=== PATIENT | female | born 1955 | race Caucasian/White ===

== ENCOUNTER 2016-05-28 14:44 | Inpatient (IN) | payer OTHER ==
[~2016-05-28] VITALS: Ht 157.5 cm; Wt 93.6 kg
[2016-05-28] VITALS (11 sets, daily range): BP systolic 134–187; BP diastolic 59–87
--- NOTE | ~2016-05-28 | PR ---
[place], [place] [facility]GR[facility] NOTE [id number] UNIT #: [id number] ROOM: [facility] DOCTOR: ELIE DILLARD MD,LORENZO BIRTHDATE: [birth year] DOS: 06/04/2016 PULMONARY CRITICAL CARE EVALUATION MANAGEMENT SUBJECTIVE: The patient remains on mechanical ventilator at this time. Plan for bronchoscopy done today. Remains on sedation with intravenous Diprivan and Versed combination intermittent use. She has been noted without any hemodynamic instability, which is acute. Low-grade fever was noted where she had rectal temperature assessment, patient up to 100 degrees Fahrenheit with normal temperature noted intermittently. OBJECTIVE: VITAL SIGNS: The patient otherwise shows respiratory rate 16-12, heart rate 60-104, blood pressure ____/51-128/62. Pulse oxygen saturation of the patient recorded as 96% saturation on 3 L nasal cannula. Intake for the patient recorded 1400 mL, output 2900 mL, ____ 1450 mL approximately. HEENT: Shows chronic obesity. The patient currently orally intubated. NECK: Supple. Head was atraumatic. CARDIOVASCULAR: S1, S2 is audible. LUNGS: The patient noted with moderate reduction of the breath sounds are noted without any wheezing or crackles. ABDOMEN: Soft and nontender. LABORATORY DATA: Culture of the endotracheal aspirate of the patient preliminary show normal kevin, final culture results were pending from yesterday. The Gram stain shows many white blood cells with few epithelial cells, no microorganisms. The heparin-induced antibody of the patient and the direct antibody for the patient platelets were noted negative. CBC this morning, WBC count 4.1, hemoglobin 9.8, hematocrit 32.3, platelet count 97,000. Arterial blood gas assist control mode on 30% oxygen, pH of 7.49, pCO2 of 32, pO2 of 78.2. CMP of patient this morning, normal BUN and creatinine. Prealbumin noted as 12. Potassium was 3.4. Sodium 146. Chest x-ray of the patient that was done this morning was reviewed. The patient shows small basilar area of atelectasis, infiltration, persistent elevation of the right hemidiaphragm. IMPRESSION: 1. Persistent acute hypercapnic hypoxic respiratory failure. 2. The patient with history of myotonic dystrophy. 3. History of congestive heart failure, systolic dysfunction. 4. Chronic obesity. 5. Elevation of the right hemidiaphragm for the patient was noted. The patient without evidence of diaphragmatic paralysis which has been assessed with the recent sniff test with fluoroscopy. 6. Acute bacterial pneumonia. 7. Basilar areas of atelectasis. 8. Moderate protein-calorie malnutrition. PLAN OF TREATMENT: Continue optimizing nutritional status. Continue mechanical ventilator for the patient with ventilator bundle management. Supportive care. [place], [place] PROGRESS NOTE [facility]: [id number] UNIT #: [id number] ROOM: [facility] DOCTOR: ELIE DILLARD MD,LORENZO BIRTHDATE: [birth year] Continuation of bronchodilators. Supportive therapy, plan of care and other medical management. Diuretic therapy will be continued as previously. With the adjustment of pacemaker she has not been noted with any further episodes of bradyarrhythmias. Proceed with the bronchoscopy as planned for this patient today. If any changes necessary in treatment, will be done based on the cultures or others after the bronchoscopy. Supportive plan of management. Total time pulmonary critical care evaluation and management 35 minutes. LORENZO DELGADILLO MD CM:PNTRANS [phone] LORENZO DILLARD MD 06/05/16 012 interface
--- NOTE | ~2016-05-28 | PR ---
[place], [place] PROGRESS NOTE NAME: TOÑO GARDNER [facility] #: [id number] UNIT #: [id number] ROOM: [facility] DOCTOR: ELIE DILLARD MD,LORENZO BIRTHDATE: [birth year] DOS: 06/10/2016 SUBJECTIVE: The patient has been noted progressive worsening of the respiratory status with hypercarbia and changes in mental status. She has been continued the BiPAP and later on was advised for intubation, she has been intubated and started back on mechanical ventilation, consultation has been ordered from the ENT specialist, Dr. Stafford, for the scheduled of tracheostomy. Low grade fever of the patient was noted. She has not been noted hemodynamic instability, NG tube feeding was continued. OBJECTIVE: VITAL SIGNS: The patient with temperature 99.8 degrees Fahrenheit, normal temperature, respiratory rate 16-12, heart rate 60-65, blood pressure 125/67-92/41. Intake for this patient is 2200 mL, output 2800 mL. The pulse oxygen saturation for the patient recorded on 35%, 97% saturation. HEENT: Examination shows head was atraumatic. Eyes nonicterus. NECK: Supple. CARDIOVASCULAR: S1, S2 audible. LUNGS: Mild to moderate decreased breath sounds bilaterally were noted. ABDOMEN: Soft, obese, nontender. LABORATORY DATA: Arterial blood gas of the patient that was done yesterday for the patient was noted with pH of 7.54, pCO2 of 39, pO2 136. BMP of the patient noted BUN 25, creatinine was normal, CO2 of 35. CBC today, hemoglobin 8.5, hematocrit 29.3, platelet count 170,000. Arterial blood gas this morning, pH of 7.44, pCO2 of 49, pO2 of 67 on 35% oxygen. IMPRESSION: 1. The patient with respiratory alkalosis, the patient was noted with recurrent acute progressive hypercapnia and hypoxic respiratory failure, currently treated with mechanical ventilation. 2. History of myotonic dystrophy for this patient as well. 3. Inability to be ventilated with noninvasive ventilation, requiring mechanical ventilation. 4. Improvement in the pneumonia of the patient and the basilar area of atelectasis of the patient has been noted progressively. 5. Protein-calorie malnutrition. The chest x-ray yesterday of the patient was noted properly positioned endotracheal tube. PLAN OF TREATMENT: Continue the bronchodilators, oxygen supplementation, ventilator bundle management. Other supportive therapy, plan of management. Usual care. All other supportive therapy, plan and management as well. Usual care. Further treatment changes will be done, the patient's progression of the illness. [place], [place] PROGRESS NOTE NAME: TOÑO GARDNER UNIT #: [id number] ROOM: [facility] DOCTOR: ELIE DILLARD MD,LORENZO BIRTHDATE: [birth year] LORENZO DELGADILLO MD CM:BOB [id number] LORENZO DILLARD MD 06/11/16 0236 interface
--- NOTE | ~2016-05-28 | PR ---
[place], [place] PROGRESS NOTE NAME: TOÑO GARDNER UNIT #: [id number] ROOM: [facility]- DOCTOR: ELIE DILLARD MD,LORENZO BIRTHDATE: [birth year] DOS: 06/11/2016 PULMONARY FOLLOWUP NOTE SUBJECTIVE: She was scheduled to have a tracheostomy done today by Dr. Stafford. The patient has been continued on small amount of sedation. She has not been noted with any hemodynamic instability for the patient, any respiratory complication and remains on assist control mode, mechanical ventilation. She was also noted afebrile. The feeding had been continued from NG tube for this patient until midnight, placed on hold because of the current surgical procedure to be done today in the OR. OBJECTIVE: VITAL SIGNS: The patient showed normal temperature, respiratory rate 12, heart rate 80, blood pressure 120/57 to 119/61. Pulse oxygen saturation of the patient recorded as 99% saturation. HEENT: Examination shows head was atraumatic. Eyes anicteric. NECK: Supple. The patient remains orally intubated. CARDIOVASCULAR SYSTEM: S1, S2 audible. LUNGS: Noted clear. ABDOMEN: Soft, nontender. Bowel sounds are present. IMPRESSION: The patient with acute respiratory failure with mild muscular dystrophy of the patient, resolving acute pneumonia, basilar area of atelectasis and acute chronic obesity as well with congestive heart failure, systolic dysfunction, compensated. PLAN OF TREATMENT: Proceed with the tracheostomy of the patient as planned. No other changes in the treatment immediately will be necessary. Feeding to be resumed for the patient after completion of uneventful tracheostomy. LORENZO DELGADILLO MD CM:PNTRANS [phone] LORENZO DILLARD MD 06/13/16 2238 interface
--- NOTE | ~2016-05-28 | PR ---
[place], [place] PROGRESS NOTE NAME: TOÑO GARDNER UNIT #: [id number] ROOM: [facility] DOCTOR: ELIE DILLARD MD,LORENZO BIRTHDATE: [birth year] DOS: 06/08/2016 PULMONARY PROGRESS NOTE SUBJECTIVE: She has been liberated for mechanical ventilator from yesterday. The patient was started immediately on the BiPAP for this patient with a setting of 20/10. This has been tolerated by the patient. The patient is agreeable tracheostomy. The patient will be reintubated. So far, the patient has been noted awake and alert, following vocal commands. She has been kept n.p.o. for the patient for possibility of suspected oropharyngeal dysphagia. The NG tube for this patient has been inserted prior to the liberation from mechanical ventilator. OBJECTIVE: VITAL SIGNS: For the patient which has been recorded showed the temperature for the patient recorded as normal. The respiratory rate of the patient recorded as 12, heart rate of 60, blood pressure 132/60-102/62. Pulse oxygen saturation of the patient recorded on the BiPAP 45% is 97-94% saturation. HEENT: Examination shows head was atraumatic. Eyes nonicterus. NECK: Supple. The patient is extubated. NG tube is in place. CARDIOVASCULAR SYSTEM: S1, S2 audible. LUNGS: Noted with moderate decreased breath sounds without any wheeze or crackles. ABDOMEN: Soft, nontender. LABORATORY DATA: BMP this morning, carbon dioxide 34, remaining electrolytes grossly normal. Arterial blood gas on the BiPAP 45% shows pH of 7.31, pCO2 of 56.7, pO2 of 83.3. CBC of this morning, hemoglobin of 9.5, hematocrit 33.9, and platelet count 164,000. IMPRESSION: 1. Resolving acute hypercapnic and hypoxic respiratory failure. 2. History of myotonic dystrophy of the patient as well. 3. Hypercarbia for the patient, which has been noted stable currently tolerating noninvasive positive pressure ventilation effectively. 4. Suspected oropharyngeal dysphagia. 5. Basilar area of atelectasis and pneumonia, which has been improving. PLAN OF TREATMENT: No changes in plan and management. Continue the patient's current therapy, plan of care as in progress. Other supportive plan of therapy, care and management. Usual treatment. [place], [place] PROGRESS NOTE NAME: TOÑO GARDNER UNIT #: [id number] ROOM: [facility] DOCTOR: ELIE DILLARD MD,LORENZO BIRTHDATE: [birth year] LORENZO DELGADILLO MD CM:PNTRANS [phone] LORENZO DILLARD MD 06/08/16 1223 interface
--- NOTE | ~2016-05-28 | PR ---
[place], [place] PROGRESS NOTE NAME: TOÑO GARDNER [facility] #: [id number] UNIT #: [id number] ROOM: [facility]- DOCTOR: ALIRIO RITTER MD BIRTHDATE: [birth year] DOS: 06/04/2016 CARDIOLOGY PROGRESS NOTE SUBJECTIVE: The patient was seen at her bedside in the Intensive Care Unit today on 06/04/2016 with her in attendance. She remains intubated and sedated on a ventilator. She appears to be breathing easily. PHYSICAL EXAMINATION: VITAL SIGNS: Her pulse is 60 and regular. The monitor shows that she is 100% AV paced, blood pressure is 138/66. Her temperature is 100 degrees. She weighs 93.6 kilograms with a body mass index of 37.7. NECK: Supple. I see no jugular distention. Carotids are full. LUNGS: Respirations are unlabored. Her chest is decreased bilaterally. HEART: Has a regular rhythm with a fourth heart sound, but no third heart sound or murmur. ABDOMEN: Obese, but otherwise benign. EXTREMITIES: Showed trace edema bilaterally. LABORATORY DATA: Chest x-ray shows minimal interstitial disease at the bases, but no vascular congestion. She has no effusions. The inspiration appears to be minimal, however. White count is 4100, hemoglobin 9.8, platelet count 97,000. Sodium 146, potassium 3.4, chloride 111, BUN 8, creatinine 0.71. IMPRESSION: 1. Acute respiratory failure due to bilateral pneumonia. 2. Myotonic dystrophy. 3. 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 4. Status post ICD placement. 5. Mild systolic congestive heart failure, which appears to be compensated at this time. Echocardiogram 05/31/2016 showed normal left ventricular size and wall thickness with ejection fraction about 50%. PLAN: We will continue to monitor the patient and manage her fluid status as needed. As noted, we did reprogram her pacing parameters 2 days ago to increase her lower rate limit from 50-60 and decrease her AV interval from over 400-300 milliseconds. Hopefully, this will improve the AV synchrony. Excess of pacing in the ventricle is not an issue since the patient's underlying rhythm is a left bundle branch block. We thank the hospitalist group for asking our advice regarding her care. [place], [place] PROGRESS NOTE NAME: TOÑO GARDNER UNIT #: [id number] ROOM: [facility] DOCTOR: ALIRIO RITTER MD BIRTHDATE: [birth year] ALIRIO RITTER MD CM:PNTRANS [phone] ALIRIO RITTER MD 06/04/16 1110 interface
--- NOTE | ~2016-05-28 | PR ---
[place], [place] PROGRESS NOTE NAME: TOÑO GARDNER UNIT #: [id number] ROOM: [facility] DOCTOR: SLICK GARCIA MD BIRTHDATE: [birth year] DOS: 06/05/2016 CARDIOLOGY FOLLOWUP NOTE REASON FOR VISIT: Hypotension and ICD. HISTORY OF PRESENT ILLNESS: The patient still on the ventilator, sedated. Hence review of systems are limited. PHYSICAL EXAMINATION: VITAL SIGNS: Blood pressure 98/50, pulse 60, respiratory rate is 12. GENERAL: The patient is on ventilator and sedated. RHYTHM STRIPS: The patient was AV pacing. HEAD AND NECK: . The patient on the vent and sedated. CHEST: Symmetrical. LUNGS: A few scattered rhonchi. HEART: Regular rhythm. No S3. Grade 1/6 systolic murmur. EXTREMITIES: Showed trace edema. NEUROLOGIC: The patient was on a ventilator and sedated. DIAGNOSTIC TESTS: Rhythm strips and labs reviewed. IMPRESSION: 1. Respiratory failure, on mechanical ventilation. 2. Mild left ventricular dysfunction. 3. Status post implantable cardioverter defibrillator. 4. Hypotension, improving. 5. History of myotonic dystrophy. RECOMMENDATIONS: 1. Her blood pressure and heart rates are relatively stable. 2. Continue current medications. 3. Once her blood pressure is stable, start low dose diuretics. 4. Dr. Sellers is planning on extubating her today. 5. Discussed with her family members who were at bedside. 6. Continue current cardiac medications. [place], [place] PROGRESS NOTE NAME: TOÑO GARDNER UNIT #: [id number] ROOM: [facility] DOCTOR: SLICK GARCIA MD BIRTHDATE: [birth year] SLICK GARCIA MD CM:PNTRANS [phone] SLICK GARCIA MD 06/05/162332 interface
--- NOTE | ~2016-05-28 | CON ---
[place], [place] REPORT OF CONSULTATION NAME: TOÑO GARDNER UNIT #: [id number] ROOM: [facility] DOCTOR: ALIRIO RITTER MD BIRTHDATE: [birth year] DOS: CARDIOLOGY CONSULTATION CHIEF COMPLAINT: Dyspnea and bradycardia. HISTORY OF PRESENT ILLNESS: The patient is a 60-year-old woman who does have a history of myotonic dystrophy. This has been complicated by hyperlipidemia and sleep apnea. The patient does have an ICD in place, which has been present for about 7 years. Presumably, the ICD was placed for conduction system disorder. She has had one ICD discharge since the device was placed. The patient presented to the hospital on this occasion with worsening dyspnea and hypoxemia. Her chest x-ray and CAT scan of the chest shows bilateral pneumonias and atelectasis. She is being treated with antibiotics and being followed by Pulmonary. Typically, the patient's ICD is followed by the saw filer at the [facility] in [place], [place]. It was noted during the current admission that she is programmed to a very slow heart rate and at times her pulse is in the 40s. The device was interrogated and I was asked to assist the pacer wrap with deciding appropriate parameters for her during the current hospitalization. According to the interrogation, the device does have a 4-year longevity. She was programmed to a lower rate limit of 50. Her AV delay was programmed at 400 milliseconds. This does not allow for normal AV synchrony even though it does encourage intrinsic ventricular activity. Nonetheless, she does have a left bundle-branch block and therefore does not have normal ventricular synchrony either. Therefore, it makes sense to me that we should improve her AV synchrony and possibly even improve her pulse to help improve her cardiac output. Currently, the patient is on BiPAP with a full face mask. She still does feel somewhat dyspneic. PAST MEDICAL HISTORY: Includes: 1. Myotonic dystrophy. 2. History of conduction system disorder, treated with placement of a dual chamber ICD around 2009. 3. History of atypical chest pain. Catheterization at the in 2011 showed no significant coronary artery disease. 4. History of aortic valve abnormality. 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 5. Chronic left bundle-branch block. 6. Hyperlipidemia. 7. Hypothyroidism. 8. Sleep apnea. [place], [place] REPORT OF CONSULTATION NAME: TOÑO GARDNER UNIT #: [id number] ROOM: [facility] DOCTOR: ALIRIO RITTER MD BIRTHDATE: [birth year] MEDICATIONS PRIOR TO ADMISSION: Aspirin 81 mg daily, cetirizine 10 mg daily, levothyroxine 112 mcg daily and propafenone 150 mg q. 8 hours. ALLERGIES: THE PATIENT LISTS ALLERGIES TO CODEINE AND SIMVASTATIN. REVIEW OF SYSTEMS: The patient denies diplopia. She does not have focal weakness. She does have myotonic dystrophy. She denies nausea or vomiting. She does have atypical chest pains. She denies fevers, chills or sweats. She does have a cough and dyspnea. She denies skin rashes. She denies heat or cold intolerance. She denies PND. She has had chronic swelling of her legs, which has not changed much lately. The remainder of the review of systems is negative except as noted above. SOCIAL HISTORY: The patient is and lives with her . She does not smoke or consume alcohol. PHYSICAL EXAMINATION: GENERAL: The patient is an overweight white female, who is awake, alert and oriented. VITAL SIGNS: Pulse is 64 and regular, blood pressure is 90/60. She is afebrile. She weighs 93.5 kg and has a body mass index of 37.7. HEENT: Normocephalic, atraumatic. Extraocular muscles are intact. Sclerae are clear. Pupils are round and react to light. The oral mucosa appears to be moist. It is difficult to see, since she is on BiPAP. NECK: Supple. She has no jugular distention or hepatojugular reflux obvious. Carotids are full without bruits. LUNGS: Respirations are unlabored at rest. She does have decreased breath sounds at the bases bilaterally. CARDIOVASCULAR: Her heart has a regular rhythm. She has a fourth heart sound. I did not hear a third heart sound. Her heart tones are distant. ABDOMEN: Obese, but otherwise benign. EXTREMITIES: Showed 1+ edema to the knees bilaterally. Peripheral pulses are palpable in the feet. I did review her electrocardiogram. She does show intermittent atrial pacing and occasional ventricular pacing. When she is not paced, she does have a left bundle-branch block. Currently, she is pacing in the atrium with normal AV conduction. IMPRESSIONS: 1. Myotonic dystrophy. 2. History of conduction system disorder, treated with dual chamber ICD around 2009. 3. Admission on this occasion with bilateral infiltrates with probable pneumonia. 4. History of atypical chest pain. Cardiac catheterization in 2011, reportedly showed no coronary artery disease. 5. Hyperlipidemia. 6. Hypothyroidism. 7. Sleep apnea syndrome. [place], [place] REPORT OF CONSULTATION NAME: TOÑO GARDNER UNIT #: [id number] ROOM: [facility] DOCTOR: ALIRIO RITTER MD BIRTHDATE: [birth year] PLAN: The pacemaker has been reprogrammed to a slightly higher rate with some rate responsiveness also added to her programming. Her ND interval was shortened from 400 milliseconds to 300 milliseconds and her lower rate limit was increased to 60. We will continue to observe her with her other physicians in the hospital and we thank the hospitalist group for asking our advice regarding her care. ALIRIO RITTER MD CM:CONSTR:REPORT OF CONSULTATION 1950 06/03/16 0610 interface
--- NOTE | ~2016-05-28 | PR ---
[place], [place] PROGRESS NOTE NAME: TOÑO GARDNER UNIT #: [id number] ROOM: [facility] DOCTOR: ELIE DILLARD MD,LORENZO BIRTHDATE: [birth year] DOS: 06/13/2016 PULMONARY PROGRESS SUBJECTIVE: She has been noted more awake and alert, responsive to vocal commands. The Diprivan has been gradually tapered off and discontinued. She has been getting p.r.n. use of the Haldol as well as a scheduled dose of Risperdal. She has been continued on mechanical ventilation, assist control mode mechanical ventilation. Tracheostomy remains in place. There was no hemodynamic instability. OBJECTIVE: VITAL SIGNS: Showed normal temperature, respiratory rate 12, heart rate 69, blood pressure 132/68. The pulse oxygen saturation of the patient recorded as 92%-90% saturation. HEENT: Examination shows head was atraumatic. Eyes nonicterus. NECK: Supple. CARDIOVASCULAR SYSTEM: S1, S2 audible. LUNGS: The patient was noted without any wheezing or crackles at the present time. ABDOMEN: Soft, nontender. EXTREMITIES: Shows chronic obesity. LABORATORY DATA: Arterial blood gas assist control mode, pH of 7.42, pCO2 of 47.5, pO2 64.7. The BMP for this patient noted normal BUN and creatinine. CO2 of 33. CBC of the patient hemoglobin 8.8, hematocrit 30.2. IMPRESSION: 1. The patient with a stable respiratory status was noted at the present time with acute hypoxic and hypercapnic respiratory failure. 2. Muscular dystrophy with myotonic dystrophy. 3. Resolved acute pneumonia basilar areas of atelectasis. 4. Stable mental status as well. PLAN OF TREATMENT: Feeding from the NG tube. Starting the patient with SI mode of mechanical ventilation for the weaning from the mechanical ventilator will be started today. She was started on CPAP of 7, pressure support of 50 with gradual reduction of the rate for this patient from 10 to lower, depends on the toleration of the current weaning. Continuation in the meantime other previous treatment, plan of management, usual care, other supportive care and plan of management. Further treatment changes will be done based on the progression of the illness. [place], [place] PROGRESS NOTE NAME: TOÑO GARDNER UNIT #: [id number] ROOM: [facility] DOCTOR: LORENZO BLAIR MD BIRTHDATE: [birth year] LORENZO DELGADILLO MD CM:PNTRANS [phone] LORENZO DILLARD MD 06/15/16 1251 interface
--- NOTE | ~2016-05-28 | PROC NOTE ---
[place], [place] PROCEDURE NOTE NAME: TOÑO GARDNER UNIT #: [id number] ROOM: [facility] DOCTOR: ELIE DILLARD MD,LORENZO BIRTHDATE: [birth year] DOS: 06/04/2016 PROCEDURE: Fiberoptic bronchoscopy. PREOPERATIVE DIAGNOSES: The patient with abnormal chest x-ray, basilar area of atelectasis, infiltration with acute respiratory failure. POSTOPERATIVE DIAGNOSES: The patient with abnormal chest x-ray, basilar area of atelectasis, infiltration with acute respiratory failure. PROCEDURE DESCRIPTION: Informed consent obtained from the patient's . The patient continued to remain on mechanical ventilator. Sedation was continued with IV Diprivan. The video fiberoptic bronchoscope advanced to endotracheal tube, lower part of trachea. The vocal cord not seen since the patient is already intubated. The tracheal lumen shows small amount of secretions suctioned out of maribel level. Maribel noted sharp. Right upper, right middle, right lower, left upper, left lingular lower lobe bronchi were all examined. The bronchial washing of the patient was taken from endobronchial tree with BAL specimens obtained from the right lower lobe endobronchial subsegment. Procedure well tolerated without any complications. Postoperative findings were discussed with the patient's after the completion of the procedure. No changes at this time in the treatment would be noted. The bronchial washings sent for all the appropriate necessary cultures. LORENZO DELGADILLO MD CM:PROCNOTE:PROCEDURE NOTE [id number] LORENZO DILLARD MD
--- NOTE | ~2016-05-28 | PR ---
[place], [place] PROGRESS NOTE NAME: TOÑO GARDNER [facility] #: [id number] UNIT #: [id number] ROOM: [place] [address] DOCTOR: ELIE DILLARD MD,LORENZO BIRTHDATE: [birth year] DOS: 05/31/2016 SUBJECTIVE: She has been noted much more awake and alert this morning using the BiPAP as previously. She has been tolerating the BiPAP effectively. Denies symptoms of chest pain or any abdominal pain. She has been noted some cough without any sputum expectoration. Denies symptoms of abdominal pain. OBJECTIVE: VITAL SIGNS: Showed normal temperature, respirations 16, heart rate 53-55, blood pressure 120/65-112/58. The pulse oxygen saturation recorded as 97% on 30% oxygen on the BiPAP with nasal cannula was 94% saturation recorded this morning. HEENT: Shows moderate obesity. NECK: Supple and obese. CARDIOVASCULAR SYSTEM: S1, S2 audible. LUNGS: Shows she has decreased breaths noted in the right lower lung. Scattered wheezing and crackles at the lower portion of the lungs as well. ABDOMEN: Soft, obese and nontender. EXTREMITIES: Shows chronic obesity. LABORATORY DATA: The patient's arterial blood gas this morning, pH is 7.60, pCO2 of 10.4, hematocrit 36.5, platelet count was normal. BMP this morning was noted normal BUN and creatinine. Sodium 146. Remaining electrolytes were normal. Arterial blood gas that was obtained for the patient nasal cannula 2 liters this morning, pH is 7.29, pCO2 of 59.7, pO2 59.5. IMPRESSION: 1. The patient with acute hypercapnic and hypoxic respiratory failure. 2. Chronic obesity. 3. Obstructive sleep apnea disorder history in the past with noncompliance and other treatment. 4. History of myotonic muscular dystrophy. 5. Chronic obesity as well. 6. Basilar area of atelectasis, possibly superimposed pneumonia, which has been treated. 7. Rule out diaphragmatic paralysis. PLAN OF TREATMENT: Use of the BiPAP the patient as previously will be continued with antibiotics, bronchodilators, and oxygen supplementation. Sniff test for the patient that has been ordered was pending. Continue current antibiotics. No change in this treatment needs to be done. Other supportive plan of management, therapy, plan of care. Usual treatments. [place], [place] PROGRESS NOTE NAME: TOÑO GARDNER UNIT #: [id number] ROOM: [place] [address] DOCTOR: LORENZO BLAIR MD BIRTHDATE: [birth year] LORENZO DELGADILLO MD CM:PNTRANS [phone] LORENZO DILLARD MD 05/31/16 1345 interface
--- NOTE | ~2016-05-28 | PR ---
[place], [place] PROGRESS NOTE NAME: TOÑO GARDNER [facility] #: [id number] UNIT #: [id number] ROOM: [facility] DOCTOR: ELIE DILLARD MD,LORENZO BIRTHDATE: [birth year] DOS: 06/05/2016 PULMONARY-CRITICAL CARE EVALUATION AND MANAGEMENT NOTE SUBJECTIVE: The patient remains on mechanical ventilator, sedated with IV Diprivan previously. The Diprivan has been discontinued about half an hour ago, resulting in gradual improvement in mental status, but she did not note it was optimal mental status improvement. She has not been noted any hemodynamic instability. Bronchoscopy was completed yesterday. Low-grade fever was noted yesterday. OBJECTIVE: VITAL SIGNS: For the patient shows temperature 99.6 degree Fahrenheit, respiratory rate of 14 to 27, heart rate 72 to 60. The blood pressure noted 90/42 to 126/56. Intake 2000 mL, output 950 mL. Pulse oxygen saturation on 30% oxygen recorded 90% saturation. HEENT: Examination shows head was atraumatic. Eyes nonicterus. The patient orally intubated. NECK: Supple. CARDIOVASCULAR: S1, S2 audible. LUNGS: Shows basilar crackles. No wheezing. ABDOMEN: Soft, nontender. LABORATORY DATA AND DIAGNOSTIC STUDIES: BMP this morning; glucose 117, BUN and creatinine were normal. Potassium 3.4. Arterial blood gas this morning on assist control mode; pH of 7.45, pCO2 of 34, pO2 of 77.7 on 30% oxygen. Culture of the endotracheal aspirate noted as normal kevin. Culture of the bronchial washing preliminary showing normal kevin. The patient's final culture results were pending. Gram stain of yesterday of the bronchial washing shows few white blood cells, few epithelial cells, rare gram-negative diplococci. Chest x-ray was done this morning shows persistent elevation of right hemidiaphragm with area of infiltration in the lower lungs. IMPRESSION: The patient who has been currently noted with; 1. Acute hypercapnic and hypoxic respiratory failure. 2. History of myotonic dystrophy. 3. Basilar area of atelectasis, infiltration, and acute bacterial pneumonia. 4. History of past cardiac dysrhythmia of the patient, currently has a pacemaker in place, which has been working effectively. 5. History of superimposed congestive heart failure with some systolic dysfunction, which appeared to be compensated at the present time. 6. The patient with pancytopenia, at this time, medication-induced, other etiologies. PLAN OF TREATMENT: Keep the patient off sedation, start the patient on CPAP of 5 with pressure support of 10 as well, that will be continued for 2 hours if tolerated for this patient. The patient will be considered possibility of liberation of mechanical ventilation depending on further progression. Other previous treatment, plan and management to be continued as well. Usual care. [place], [place] PROGRESS NOTE NAME: TOÑO GARDNER UNIT #: [id number] ROOM: [facility] DOCTOR: ELIE DILLARD MD,LORENZO BIRTHDATE: [birth year] All other supportive plan of therapy and plan of management. Further treatment changes will be done based on the progression of the illness. Continuation of the DVT prophylaxis. Continue nutrition support from the NG tube for the patient for the [id number] protein calorie malnutrition. Other supportive plan and management as well. Usual care. Total time for pulmonary critical care evaluation and management was 35 minutes. LORENZO DELGADILLO MD CM:PNTRANS [phone] LORENZO DILLARD MD 06/10/16 5364 interface
--- NOTE | ~2016-05-28 | PR ---
[place], [place] PROGRESS NOTE NAME: TOÑO GARDNER UNIT #: [id number] ROOM: [facility] DOCTOR: LORENZO BLAIR MD BIRTHDATE: [birth year] DOS: 06/14/2016 PULMONARY PROGRESS NOTE SUBJECTIVE: She has been comfortably resting at this time on the bed. She has been noted comfortable from the mental status as well. The SI mode of mechanical ventilation continued with pressure support of 15 and rate of 10 at the present time. At this time, the patient was breathing at a rate of 12 breaths per minute. Tidal volume noted about 400 mL on the mechanical ventilator. OBJECTIVE: VITAL SIGNS: Showed normal temperature to 99.4 degrees Fahrenheit, respiratory rate of 14, heart rate 70, blood pressure 105/63. Intake for the patient 2100 mL, the output 950 mL. Pulse oxygen saturation for the patient on the mechanical ventilator at 30% oxygen 96% saturation. HEENT: Examination shows tracheostomy remains in place. NECK: Supple. CARDIOVASCULAR SYSTEM: S1, S2 audible. LUNGS: Noted without any wheezing or crackles. ABDOMEN: Soft, nontender. LABORATORY DATA: CBC: WBC count 4.3, hemoglobin 8.6, hematocrit 30.3, platelet count was normal. BMP of the patient this morning was noted normal BUN and creatinine. CO2 35. The labs on the patient also arterial blood gas, pH of 7.35, pCO2 of 58, pO2 of 86 on SI mode of mechanical ventilation. IMPRESSION: 1. The patient has stable respiratory patient with acute hypercapnia and hypoxia. 2. Permanent tracheostomy, currently weaning noted in progress. 3. Severe obesity. 4. History of myotonic muscular dystrophy. PLAN OF TREATMENT: No changes in the plan of management, mild leukopenia of the patient noted most likely medication induced, will be monitored. Other supportive therapy, plan of management, other care. Usual treatment. Continue weaning from mechanical ventilator. [place], [place] PROGRESS NOTE NAME: TOÑO GARDNER UNIT #: [id number] ROOM: [facility] DOCTOR: LORENZO BLAIR MD BIRTHDATE: [birth year] LORENZO DELGADILLO MD CM:PNTRANS [phone] LORENZO DILLARD MD 06/15/16136 interface
--- NOTE | ~2016-05-28 | CON ---
[place], [place] REPORT OF CONSULTATION NAME: TOÑO GARDNER UNIT #: [id number] ROOM: [facility] DOCTOR: LUKE MCKAYDWAINE BIRTHDATE: [birth year] DOS: 06/10/2016 ATTENDING: Dr. Thomas Menezes. REASON FOR CONSULTATION: Respiratory failure, evaluate for tracheostomy. HISTORY OF PRESENT ILLNESS: The patient is a 60-year-old white female with a history of progressive muscular dystrophy who has been hospitalized at [facility] over the past 2 weeks with respiratory failure. She has remained intubated and has failed attempts of extubation. Dr. Sellers has requested evaluation for tracheostomy because of failure to wean. The patient has significant chronic weakness and was having decreased ability to ambulate. PAST MEDICAL HISTORY: Muscular dystrophy, myotonic dystrophy, obesity, sleep apnea, hypothyroidism, history of OK, hyperlipidemia, depression, coronary artery disease and AFib. PAST SURGICAL HISTORY: Includes AICD placement, , history of cardiac catheterization, cataract surgery, and cholecystectomy. CURRENT MEDICATIONS: Include Lasix, Rocephin, Zithromax, Protonix, peridex, aspirin, levothyroxine, Lovenox, Zyrtec, DuoNeb, and Zofran. ALLERGIES: CODEINE, SIMVASTATIN. FAMILY HISTORY: Paternal history of lymphoma, maternal history of stroke. Examination, the patient was examined at the bedside. She is in the ICU. She is on a ventilator and has nasogastric tube in place. PHYSICAL EXAMINATION: VITAL SIGNS: Blood pressure 123/65, pulse ox 97. NECK: The examination of the neck shows no palpable adenopathy. GENERAL: The patient is obese. She has an endotracheal tube in place, in good position. Trachea is midline. The complete examination is compromised by the patient's endotracheal intubation. HEENT: Ears are clear. Nose shows no mucopurulence. HEART: Regular rate and rhythm. LUNGS: Showed diminished breath sounds bilaterally. IMPRESSION: 1. Respiratory failure. 2. Muscular dystrophy. 3. Failure to wean from ventilator. PLAN: We will proceed with tracheostomy. The patient is tentatively scheduled for tracheostomy on 06/11/2016 at 10:00 a.m. [place], [place] REPORT OF CONSULTATION NAME: TOÑO GARDNER UNIT #: [id number] ROOM: [facility] DOCTOR: DWAINE BUTLER MD BIRTHDATE: [birth year] DWAINE BUTLER MD CM:CONSTR:REPORT OF CONSULTATION 0828 06/10/16 0905 interface
--- NOTE | ~2016-05-28 | PR ---
[place], [place] PROGRESS NOTE NAME: TOÑO GARDNER UNIT #: [id number] ROOM: [place] [address] DOCTOR: ELIE DILLARD MD,LORENZO BIRTHDATE: [birth year] DOS: 06/01/2016 SUBJECTIVE: She has been noted comfortable at this time, more awake and alert this morning. Denies symptoms of chest pain or any abdominal pain. The SNIFF test was completed for patient yesterday that was noted normal. OBJECTIVE: VITAL SIGNS: The patient shows a normal temperature, respiratory rate 14, heart rate 54, and blood pressure 130/68-133/70. Her pulse oxygen saturation 30% oxygen 98% saturation. HEENT: Shows no new change. NECK: Supple. CARDIOVASCULAR SYSTEM: S1, S2 audible. LUNGS: For the patient was noted without any wheezing or crackles at the present time. ABDOMEN: Soft and nontender. LABORATORY DATA: There were no new labs done today except the arterial blood gas this morning was done on 30% oxygen supplementation with the BiPAP, pH of 7.32, pCO2 of 54.7, pO2 89.8. IMPRESSION: 1. Basilar area of atelectasis, acute infiltration with acute hypoxic and hypercapnic respiratory failure, resolving. There was no evidence of right diaphragmatic paralysis for the patient noted with elevation of right hemidiaphragm. The patient has been noted. 2. History of myotonic muscular dystrophy. PLAN OF TREATMENT: Continue the patient's current plan of management without any changes. Usual care. Supportive therapy, plan of care. Usual treatment. Continue the BiPAP. The patient has been noted poor peripheral venous access and will be recommended about PICC line insertion. LORENZO DELGADILLO MD CM:PNTRANS [phone] LORENZO DILLARD MD 06/01/16 1423 interface
--- NOTE | ~2016-05-28 | PR ---
[place], [place] PROGRESS NOTE [id number] UN[facility] #: [id number] ROOM: [facility] DOCTOR: ELIE DILLARD MD,LORENZO BIRTHDATE: [birth year] DOS: 06/03/2016 PULMONARY CRITICAL CARE EVALUATION AND MANAGEMENT SUBJECTIVE: She has been noted with progressive change in mental status with agitation, has been given Ativan for the patient's other medical management, resulting in further deterioration of the hypercarbia and respiratory failure progression. She has been continued on the BiPAP for the patient last night, but it was noted ineffective later on. She has been intubated and started on mechanical ventilation successfully by the anesthesia staff. The patient has been currently intubated and remains on mechanical ventilation, has not been noted with any hemodynamic instability. The sinus tachycardia for the patient that has been noted at times was decreased. The pacemaker for the patient was readjusted for the patient because of increased delivery which has been noted setup in the programing was fixed. Heart rate was noted greater than 60 for this patient after the baseline heart rate changed from 50-60 yesterday. This morning, the patient has been sedated on mechanical ventilation and intubated orally. Orogastric tube is in place. OBJECTIVE: VITAL SIGNS: Showed normal temperature, respiratory rate 12, heart rate of 60-109, blood pressure 120/80-130/54. Intake 3. liters, the output 1100 mL. Positive fluid balance of 2 liters. Pulse oxygen saturation on 50% oxygen 100% saturation recorded. HEENT: Examination shows head was atraumatic. The patient orally intubated. NECK: Supple. Orogastric tube is in place. CARDIOVASCULAR: S1, S2 is audible. LUNGS: For the patient was noted without any wheezing or crackles at the present time. Breaths are noted mildly decreased bilaterally. ABDOMEN: Soft, nontender. LABORATORY DATA: Arterial blood gas, pH of 7.43, pCO2 35, pO2 140 post-intubation and mechanical ventilation. CMP of the patient on 06/03, glucose 152, BUN and creatinine was normal. Total protein 5.5, albumin 2.9. CBC this morning, WBC count 5.2, hemoglobin 10.5, hematocrit 36.8, platelet count was normal. Arterial blood gas of the patient on 35% oxygen, pH of 7.21, pCO2 62, and pO2 62 as well. Another arterial blood gas for the patient done earlier on BiPAP, pH of 7.24, pCO2 of 60, pO2 75.5. TSH level noted normal that was ordered yesterday. Chest x-ray of the patient that was done this morning for the patient post-intubation was reviewed, left lower lobe infiltration or atelectasis for the patient noted more pronounced. The right lower lobe aeration noted improved, small bilateral pleural fluid was also suspected, AICD noted in place, endotracheal tube tip was noted 4 cm above the vivian level. NG tube was noted in appropriate position in the stomach. IMPRESSION: 1. The patient who has been currently noted with acute progressive hypoxic and hypercapnic respiratory failure with possibility of fluid overload, congestive heart failure superimposed with acute bacterial pneumonia and atelectasis was considered. [place], [place] PROGRESS NOTE NAME: TOÑO GARDNER UNIT #: [id number] ROOM: [facility] DOCTOR: ELIE DILLARD MD,LORENZO BIRTHDATE: [birth year] 2. History of myotonic dystrophy. 3. Chronic obesity as well. 4. Resolution of bradycardia after adjustment to the baseline pacemaker. 5. Chronic obesity as well. 6. Possible protein-calorie malnutrition as well. PLAN OF TREATMENT: The patient will be started on the NG tube feeding. Prealbumin level was ordered to assess the nutritional status. Ventilator bundle management has been initiated for the patient post-intubation. Sedation will be continued with the IV Diprivan. All other supportive plan of therapy and care management. Usual care. Thanks for allowing me to participate in the care of this patient. ADDENDUM Total time of pulmonary critical care management for the patient today is 40 minutes. LORENZO DELGADILLO MD CM:PNTRANS [phone] LORENZO DILLARD MD 06/04/16 1548 interface
--- NOTE | ~2016-05-28 | PR ---
[place], [place] PROGRESS NOTE NAME: TOÑO GARDNER UNIT #: [id number] ROOM: [facility] DOCTOR: ELIE DILLARD MD,LORENZO BIRTHDATE: [birth year] DOS: 06/12/2016 PULMONARY PROGRESS NOTE SUBJECTIVE: The patient has been heavily sedated at this time with Diprivan. The Diprivan dose has been decreased this morning. She has been noted without any complications after tracheostomy for the patient that was completed without difficulty yesterday. OBJECTIVE: VITAL SIGNS: For the patient, which have been recorded showed the temperature noted normal, respiratory rate 12 , blood pressure 92/58. Pulse oxygen saturation of the patient was recorded on mechanical ventilator 96% saturation. HEENT: Examination shows head was atraumatic. Eyes nonicterus. NECK: Tracheostomy in place. CARDIOVASCULAR SYSTEM: S1, S2 audible. LUNGS: Without any wheezing or crackles. ABDOMEN: Soft, nontender. LABORATORY DATA: CBC today, WBC count 3.6, hemoglobin 8.6, hematocrit 29.3, platelet count was normal. The BMP of patient this morning was noted as normal. Chest x-ray yesterday post-tracheostomy noted tracheostomy in place for the patient without any other acute changes. IMPRESSION: 1. Resolution of the pneumonia, resolving at basilar area of atelectasis. 2. Acute hypercapnic hypoxic respiratory failure with current tracheostomy. PLAN OF TREATMENT: The sedation for the patient in the form of the Diprivan will be gradually reduced and discontinued. The patient will be started on Haldol for the patient for any agitation. The Risperdal was also added the lower dose for this patient 0.25 mg b.i.d., the dose will be increased to keep the patient for more comfort. Once sedation will be turned off for this patient and noted with adequate mental status of the patient and comfort level for the patient achieved, the weaning will be started for this patient. In the meantime, continue other previous treatment therapy, plan of management, usual care and plan of therapies. Usual care. [place], [place] PROGRESS NOTE NAME: TOÑO GARDNER UNIT #: [id number] ROOM: [facility] DOCTOR: LORENZO BLAIR MD BIRTHDATE: [birth year] LORENZO DELGADILLO MD CM:PNTRANS 11 LORENZO DILLARD MD 06/12/161911 interface
--- NOTE | ~2016-05-28 | PR ---
[place], [place] PROGRESS NOTE NAME: TOÑO GARDNER UNIT #: [id number] ROOM: [facility] DOCTOR: SLICK GARCIA MD BIRTHDATE: [birth year] DOS: 06/06/2016 CARDIOLOGY FOLLOWUP VISIT NOTE REASON FOR VISIT: Cardiomyopathy and ICD. HISTORY OF PRESENT ILLNESS: The patient still on the ventilator, but somewhat alert, no acute distress. REVIEW OF SYSTEMS: Limited due to her status. The patient was on ventilator and sedated. RHYTHM STRIPS: The patient was in sinus rhythm with ventricular pacing. PHYSICAL EXAMINATION: VITAL SIGNS: Blood pressure 111/87, pulse 60, respiratory rate is 12. GENERAL: The patient is alert, on the ventilator. HEAD AND NECK: The patient on the vent. No distant neck veins. No carotid bruit. LUNGS: Showed few scattered rhonchi. HEART: Regular rhythm, no S3, grade 1/6 systolic murmur. ABDOMEN: Bowel sounds normal. EXTREMITIES: Showed 1+ edema. Distal pulses are palpable. SKIN: Warm and dry. NEUROLOGIC: The patient was on ventilator and sedated. IMPRESSION: 1. Mild left ventricular dysfunction, ejection fraction, acute heart failure. 2. Hypotension, mostly resolved. 3. Respiratory failure on mechanical ventilation. 4. Status post implantable cardioverter-defibrillator, normal function. ICD was reprogrammed. 5. Myotonic dystrophy. RECOMMENDATIONS: 1. Continue current medications. 2. Once her blood pressure is stable, she is off the ventilator. Use her diuretics as needed. 3. There is no family at bedside. 4. Continue her current medical therapy. [place], [place] PROGRESS NOTE NAME: TOÑO GRADNER UNIT #: [id number] ROOM: [facility] DOCTOR: SLICK GARCIA MD BIRTHDATE: [birth year] SLICK GARCIA MD CM:PNTRANS [phone] SLICK GARCIA MD 06/06/162352 interface
--- NOTE | ~2016-05-28 | PR ---
[place], [place] PROGRESS NOTE NAME: TOÑO GARDNER UNIT #: [id number] ROOM: [facility] DOCTOR: LORENZO BLAIR MD BIRTHDATE: [birth year] DOS: 06/15/2016 PULMONARY PROGRESS NOTE SUBJECTIVE: She remains on mechanical ventilator, noted fully awake and alert, requires Haldol occasionally. She was continued on the Risperdal. She does follow vocal commands. She was continued on SI mode of mechanical ventilation for the weaning. respiratory rate has been decreased to 6 this morning. OBJECTIVE: VITAL SIGNS: Shows a normal temperature, respiratory rate 12, heart rate of 76, blood pressure 94/41-110/86. A pulse oxygen saturation 30% oxygen 94% saturation recorded. HEENT: Tracheostomy remains in place. NECK: Supple. CARDIOVASCULAR SYSTEM: S1, S2 is audible. LUNGS: Noted without any wheezing or crackles. ABDOMEN: Soft, nontender. LABORATORY DATA: CBC of the patient this morning noted mild anemia, hemoglobin 9, hematocrit 31.9, WBC count and platelet count were normal. CMP of the patient, BUN 26, creatinine was normal. CO2 of 34. IMPRESSION: 1. Stable respiratory status for the patient with the acute hypercapnic, hypoxic respiratory failure, ventilator dependency with the history of myotonic muscular dystrophy. 2. Resolved acute pneumonia, basilar area of atelectasis. 3. Hypercapnia as well. 4. Chronic obesity. PLAN OF TREATMENT: Continue the weaning of patient as in progress for the patient at this time. No other change in the treatment at this time otherwise will be necessary. Other supportive therapy, plan of management and care. Usual medical management. [place], [place] PROGRESS NOTE NAME: TOÑO GARDNER UNIT #: [id number] ROOM: [facility] DOCTOR: LORENZO BLAIR MD BIRTHDATE: [birth year] LORENZO DELGADILLO MD CM:PNTRANS [phone] LORENZO DILLARD MD 06/15/16 2334 interface
--- NOTE | ~2016-05-28 | CON ---
[place], [place] REPORT OF CONSULTATION NAME: [facility]ARDNER [id number] UNIT #: [id number] ROOM: [place] [address] DOCTOR: LORENZO BLAIR MD BIRTHDATE: [birth year] DOS: 05/29/2016 PULMONARY CONSULTATION EVALUATION AND MANAGEMENT The consultation was requested by the hospitalist services. HISTORY OF PRESENT ILLNESS: A 60-year-old white female who has been sent from [facility] because of the hypoxia to the hospital yesterday for further assessment. The patient has been noted to have progressive muscular dystrophy. She has been admitted to the hospital and saturation of the patient was reported as 86% for this patient by the EMS as well. The patient reported symptoms of coughing, which has been present for the past 3 days as well as a decrease in her appetite as well. She denies symptoms of wheezing. Denies symptoms of chest pain or hemoptysis. REVIEW OF SYSTEMS: CONSTITUTIONAL: She reports symptoms of fatigue and tiredness. Denies symptoms of fever or chills. EYES: Denies any burning, redness, or tenderness. EARS, NOSE, THROAT SYMPTOMS: No sore throat, hoarseness, otalgia, or postnasal drainage. CARDIOVASCULAR: Denies anginal pain. Denies any palpitations. The patient reported symptoms of intermittent edema of the lower extremities. GASTROINTESTINAL: Denies dysphagia, nausea, vomiting, diarrhea, abdominal pain, hematemesis, melena, or hematochezia. Denies symptoms of dysphagia. GENITOURINARY: Denies dysuria, suprapubic pain, or hematuria. MUSCULOSKELETAL: History of muscular dystrophy of the patient, type exactly was unknown. 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 CENTRAL NERVOUS SYSTEM: Generalized weakness and fatigue was noted for this patient with history of muscular dystrophy without any focal deficit. SKIN: Denies any lesions or rashes. MUSCULOSKELETAL: Denied any acute joint pain. The remaining systems were reviewed with the patient, they were all noted negative. PAST MEDICAL HISTORY: 1. Coronary artery disease. 2. Atrial fibrillation. 3. History of muscular dystrophy and myotonic dystrophy. 4. History of chronic obesity. 5. Obstructive sleep apnea disorder. 6. Hyperlipidemia. 7. History of depression. PAST SURGICAL HISTORY: 1. Cardiac catheterization in the past. 2. AICD insertion. 3. . 4. Cataract extraction. [place], [place] REPORT OF CONSULTATION NAME: TOÑO GARDNER UNIT #: [id number] ROOM: [place] [address] DOCTOR: LORENZO BLAIR MD BIRTHDATE: [birth year] 5. Cholecystectomy. SOCIAL HISTORY: The patient reported , has 2 children, nonsmoker lifetime. Denies history of alcohol use or any illicit drug use. FAMILY HISTORY: The patient's father has been known with history of lymphoma. Mother at the age of 60-year-old from complication related to the CVA. Family history of coronary artery disease, cancer, diabetes, and hypertension was also reported. HOME MEDICATIONS: Noted use of aspirin, Zyrtec, Synthroid and Rythmol. DRUG ALLERGIES: Noted allergies to the codeine and simvastatin. PHYSICAL EXAMINATION: GENERAL: This is 60-year-old female who has been currently sitting comfortably on her bed without any distress. VITAL SIGNS: The patient's height was recorded by the nursing staff for this patient at the time of admission with height of 5 feet 2 inches, weight of 206 pounds, BMI 37.5. The vital signs show temperature normal, respiratory rate of 18, heart rate 67-58, blood pressure 181/72-146/85. The pulse oxygen saturation of the patient recorded on 4 liters nasal cannula was 93% saturation, previously on room air was 86% saturation at rest. HEENT: Moderate obesity. Partial ptosis of the eyes was noted bilaterally. NECK: Supple. CARDIOVASCULAR: S1, S2 is audible. LUNGS: The patient was noted with [id number] decreased breath sounds noted in the lungs bilaterally. There were no crackles or wheezing. ABDOMEN: Soft, obese. EXTREMITIES: Show no edema, clubbing or cyanosis. CENTRAL NERVOUS SYSTEM: Generalized muscular weakness noted, remaining examination could not be completed. SKIN: Showed no lesions or rashes. MUSCULOSKELETAL: Does not show any deformities. LABORATORY DATA: CBC on 05/28/2016 admission: WBC count 4.1, hemoglobin 13, hematocrit 45.3, platelet count was normal. Arterial blood gas in the Emergency Room; pH of 7.28, pCO2 of 68, pO2 of 63.9. CMP of the patient on 05/28/2016 for the patient noted normal BUN and creatinine, sodium 150, carbon dioxide 35, alkaline phosphatase minimally elevated at 131. ProBNP ____liver function test otherwise. CK-MB, troponin for the patient to reassess the patient yesterday and this morning noted normal. PT/PTT this morning normal. CMP this morning, glucose 169, BUN and creatinine remains normal. The magnesium was normal. The chest x-ray that was done for the patient, reviewed for patient, 05/28/2016 shows mild pulmonary venous congestion was noted without any acute clots, pulmonary infiltration. The patient had a CT scan of the chest, which was done for this patient on this admission as well was personally reviewed. CT scan of the chest, which was done without contrast shows basilar areas of atelectasis, possibility of compression atelectasis, pneumonia cannot be completely excluded. Right diaphragm was elevated. Several chest x-ray of the patient, which has [place], [place] REPORT OF CONSULTATION NAME: TOÑO GARDNER UNIT #: [id number] ROOM: [place] [address] DOCTOR: LORENZO BLAIR MD BIRTHDATE: [birth year] done for this patient was reviewed for this patient. The chest x-ray as far as of 04/15/2009 for this patient shows mild elevation of the right hemidiaphragm at that time. Chest x-ray of the patient that was done in 2012 shows elevation of the right hemidiaphragm. Chest x-ray ____ shows elevation of the right hemidiaphragm for this patient. The AICD and pacemaker was noted in place for this patient, first time noted in the chest x-ray 2012. IMPRESSION: 1. The patient who has been currently admitted to the hospital and noted with acute hypoxic respiratory failure with possibly chronic hypercapnic respiratory failure and hypoventilation secondary to muscle dystrophy. The current symptoms of cough for the patient was suggestive of possibility of acute pneumonia to be considered in the differential diagnosis in addition to the area of atelectasis. 2. Rule out right diaphragmatic paralysis. Most likely a chronic finding, but needs confirmation. 3. History of congestive heart failure, history of coronary artery disease, cardiac dysrhythmia, automatic implantable cardioverter-defibrillator in place, chronic obesity and other problems as well including hypothyroidism. PLAN OF TREATMENT: The patient will be ordered the BiPAP for this patient to help improve the current hypoventilatory syndrome. She could use her CPAP or BiPAP from home, which has been previously used, the patient with history of obstructive sleep apnea disorder as well if necessary. The sniff test for this patient will be ordered to rule out the diaphragmatic paralysis for this patient for confirmation reason. Continuation of other previous treatment, plan of management, plan of care. Sputum for Gram stain culture, if reduced by the patient with expectoration could be sent for cultures. The bronchodilator will be given every 4 hours to help mobilize secretions. The patient has been started on Solu-Medrol 60 mg q.8 hours, the reason of that unknown. The steroids will be decreased for the patient, possibly discontinue it. Other supportive therapy, plan and management as well. Usual care. Other supportive plan of management and therapies. Thanks for allowing me to participate in the care of this patient. LORENZO DELGADILLO MD CM:CONSTR:REPORT OF CONSULTATION 1329 05/31/16 0216 interface
--- NOTE | ~2016-05-28 | PR ---
[place], [place] PROGRESS NOTE NAME: [id number] UNIT #: [id number] ROOM: [facility] DOCTOR: ELIE DILLARD MD,LORENZO BIRTHDATE: [birth year] DOS: 06/07/2016 SUBJECTIVE: The patient remains on mechanical ventilator, awake and alert. She has not been given any sedative. The patient has been continuing CPAP mode of mechanical ventilation several hours, with the patient's CPAP 5, pressure support of 15. Arterial blood gases CPAP of 5, pressure support of 10, was noted significant hypercarbia and decreased pH. This morning as the patient noticed, she was noted assist control mode on mechanical ventilation. She has not been noted any acute hemodynamic instability. Continue other previous treatment as ordered including ventilator bundle management and nutrition support from the orogastric tube. PHYSICAL EXAMINATION: VITAL SIGNS: Shows normal temperature, respiratory rate 17, heart rate of 60, blood pressure 123/66. Intake 2000, the output was 1250 mL. The pulse oxygen saturation on 30% oxygen 94% saturation recorded. HEENT: Examination shows head was atraumatic. Eyes nonicterus. The patient is currently intubated orally. Gastric tube is in place. CARDIOVASCULAR: S1, S2 is audible. LUNGS: The patient noted with moderate reduction in the breath sounds bilaterally. There were no crackles, rhonchi or wheezing noted at the present time. The lungs were noted essentially clear. ABDOMEN: Soft. Moderate obesity. EXTREMITIES: Shows chronic obesity without any edema. LABORATORY DATA: 1:34 Arterial blood gases: Assist control mode mechanical ventilation, pH of 7.48, pCO2 35, pO2 80.9. The BMP for this patient this morning, BUN and creatinine were normal, glucose 114, sodium 147, phosphorus 2.1, magnesium 2.3. CBC this morning, hemoglobin 8.7, hematocrit 30.1, platelet count was noted completely normal, today 132,000 with normal WBC count. Direct platelet antibodies were noted negative as well. IMPRESSION: 1. The patient with resolving acute hypercapnic and hypoxic respiratory failure. 2. The patient with history of myotonic dystrophy patient as well by history. 3. Significant carbon dioxide retention because of the muscular weakness. 4. Chronic obesity. 5. Resolving acute pneumonia and atelectasis, clinically and radiologically. 6. Mild hypernatremia secondary to diuretics as well. 6. Moderate protein-calorie malnutrition, which has been currently treated with the nutrition support from the NG tube. Orogastric tube rather. PLAN OF TREATMENT: Continuation of the current plan of management of the patient with mechanical ventilation, assist control mode, off sedation, since the patient has been noted quite comfortable. A very detailed discussion done with the patient's yesterday with the patient about the further advanced directives and management. If the patient could be extubated, the patient will require the noninvasive positive pressure ventilation for this patient to support her ventilatory muscle issues with the muscular dystrophy. If the [place], [place] PROGRESS NOTE NAME: TOÑO GARDNER UNIT #: [id number] ROOM: [facility] DOCTOR: ELIE DILLARD MD,LORENZO BIRTHDATE: [birth year] patient fails that and noted progressive retention of carbon dioxide for the patient and respiratory failure, she will require to be reintubated and would require tracheostomy further long-term management. The use of the tracheostomy probably going to be coming eminent for this patient in the very near future because of history of muscular dystrophy. The DVT prophylaxis to be continued. Continue ventilator bundle management. So far, I do not have any final decision for the family members. The patient to do any further intervention or consideration of liberation of mechanical ventilation. As soon as I will inform the decision for the patient's family members including patient, who will participate in the decision making process of the patient. The changes in the medical management will be ordered accordingly. Total time pulmonary critical care evaluation and management was 38 minutes. LORENZO DELGADILLO MD CM:PNTRANS [id number] LORENZO DILLARD MD 06/08/16 0258 interface
--- NOTE | ~2016-05-28 | PR ---
[place], [place] PROGRESS NOTE NAME: TOÑO GARDNER [facility] #: [id number] UNIT #: [id number] ROOM: [facility] DOCTOR: ALIRIO RITTER MD BIRTHDATE: [birth year] DOS: 06/03/2016 CARDIOLOGY PROGRESS NOTE SUBJECTIVE: The patient was seen at her bedside in the Intensive Care Unit today, 06/03/2016. Overnight, her respiratory status did deteriorate and she developed mental status changes. Because of this, she was intubated early this morning. She is now on a ventilator and sedated. She is breathing easily and appears comfortable. PHYSICAL EXAMINATION: VITAL SIGNS: Her pulse is 60 and regular, blood pressure is 120/80, she weighs 93.6 kilograms with a body mass index of 37.7. NECK: Supple. She does have mild jugular distention. Carotids are full. LUNGS: Respirations are per ventilator. She has decreased breath sounds at the bases. HEART: Has a regular rhythm with a fourth heart sound, but no third heart sound. ABDOMEN: Obese, but otherwise benign. EXTREMITIES: Do show significant arm and leg edema bilaterally. LABORATORY DATA: Hemoglobin is 10.5, white count 5200 with 103,000 platelets. Her blood gases prior to intubation showed a pH of 7.215 with a pCO2 of 62 and a pO2 of 62. After intubation, her pH was 7.438 with a pCO2 of 35.6 and a pO2 of 140. Sodium is 143, potassium 3.8, BUN 9, creatinine 0.73. IMPRESSION: 1. Acute respiratory failure due to pneumonia. 2. Myotonic dystrophy. 3. Status post ICD placement. 4. 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 5. Mild systolic congestive heart failure. Echocardiogram on 05/31/2016 showed normal left ventricular size and wall thickness with ejection fraction about 50%. PLAN: The patient's pacemaker was reprogrammed last night to shorten her AV interval and increase her rate. Her minimum rate is now 60 with an AV interval of 300 milliseconds. From my perspective, it does not matter if she is paced in the left ventricle since she has an underlying left bundle branch block in any case. Higher heart rate than what was programmed previously will likely improve her cardiac output. We will continue her current cardiac management and observe her with her other physicians. We thank the hospitalist group for asking our advice regarding her care. [place], [place] PROGRESS NOTE NAME: TOÑO GARDNER UNIT #: [id number] ROOM: [facility] DOCTOR: STONE MCKAY,ALIRIO BIRTHDATE: [birth year] ALIRIO RITTER MD CM:PNTRANS [id number] ALIRIO RITTER MD 06/03/162308 interface
--- NOTE | ~2016-05-28 | PR ---
[place], [place] PROGRESS NOTE NAME: TOÑ[facility]ARDNER [facility] #[facility] [id number] UNIT #: [id number] ROOM: [place] [address] DOCTOR: ELIE DILLARD MD,LORENZO BIRTHDATE: [birth year] DOS: 05/30/2016 PULMONARY CRITICAL CARE EVALUATION MANAGEMENT SUBJECTIVE: The patient has been noted with progressive change in mental status and drowsiness yesterday. She has been started on the BiPAP for patient for the medical management of the current hypercapnia and respiratory failure. The patient resisted to use the BiPAP initially, but later noted with worsening of the unresponsiveness. Family members and patient's also came to the hospital and she was convinced to use the BiPAP that has been used by the patient. The pressure changes have been gradually made for this patient to improve the ventilatory status. She was still noted with significant hypercapnia with BiPAP. She was transferred to Intensive Care Unit where she resides at this time. The patient was noted arousable with the vocal command yesterday. The patient has been noted with symptoms of some cough, no sputum expectoration. Further history has been obtained and confirmed from the patient's . He stated the patient has been diagnosed with myotonic muscular dystrophy about 15 years ago by the genetic analysis of the patient and other testing for this patient at [facility]. The patient has been also known with a diagnosis of obstructive sleep apnea disorder that was established several years ago, but the patient remained noncompliant with treatment and does not use any positive pressure ventilatory device for the patient in the home settings. OBJECTIVE: VITAL SIGNS: At this time, was noted with a normal temperature, respiratory rate 16-20, heart rate of 60-53, blood pressure 135/81-137/65. Intake for the patient was 1200 mL, output 650 mL. Pulse oxygen saturation with the BiPAP was 94%-98% saturation on 40% oxygen to 50% oxygen. HEENT: Chronic severe obesity. Head was atraumatic. Eyes nonicterus. NECK: Supple. CARDIOVASCULAR: S1, S2 is audible. LUNGS: Noted with decreased breath sounds still noted in the lungs bilaterally. ABDOMEN: Soft and obese. LABORATORY DATA: CK-MB, troponin yesterday and this morning normal. Arterial blood gas for this patient that was done on 4 L nasal cannula yesterday shows pH of 7.23, pCO2 of 75, pO2 of 56. Arterial blood gas on the BiPAP for the patient, pH of 7.22, pCO2 of 76, pO2 of 99.8. Arterial blood gas that was done today for this patient 30% oxygen, pH of 7.24, pCO2 of 70, pO2 of 114 on 30% oxygen. Arterial blood gas of the patient that was done at noon, pH of 7.26, pCO2 of 67.4, pO2 of 80 with a setting BiPAP of 20/10. The CBC of the patient this morning, hemoglobin and hematocrit normal, WBC count normal, platelet count was normal. BMP this morning, BUN and creatinine were normal. Sodium 148. Carbon dioxide 33. IMPRESSION: 1. The patient with myotonic muscular dystrophy, currently treated in the hospital with acute hypoxic respiratory failure with hypercapnic respiratory failure. [place], [place] PROGRESS NOTE NAME: TOÑO GARDNER UNIT #: [id number] ROOM: [place] [address] DOCTOR: ELIE DILLARD MDLORENZO BIRTHDATE: [birth year] 2. Rule out diaphragmatic paralysis. 3. Basilar area of atelectasis, infiltration in the lower lungs for the patient was suspected, currently treated as well. 4. Chronic obesity. 5. Obstructive sleep apnea disorder, noncompliant with treatment. Other previous treatment of the patient, which has been currently considered and treated. 6. History of hypothyroidism. PLAN OF TREATMENT: Continue current BiPAP for the patient, close monitoring of the respiratory status. If the patient be noted with further deterioration of the respiratory status current use of the BiPAP for the patient would be considered maximal pressures use for this patient. She might require intubation and mechanical ventilation. The patient's code status had been determined to be full code for this patient, which has been confirmed from the patient's as well at the bedside. Another arterial blood gases will be done in another 4 hours for this patient for reassessment of the respiratory status closely. The patient could be given oral food in case the patient is able to swallow the food, the patient with improvement in mental status. Continuation of DVT prophylaxis. Continuation of bronchodilators and antibiotics. Further treatment changes will be done for the patient based on progression of the illness. Usual care. All other supportive plan and management and care. Total time for pulmonary critical care evaluation and management was 40 minutes. LORENZO DELGADILLO MD CM:PNTRANS [id number] LORENZO DILLARD MD 05/31/16 0108 interface
--- NOTE | ~2016-05-28 | PR ---
[place], [place] PROGRESS NOTE NAME: TOÑO GARDNER UNIT #: [id number] ROOM: [facility] DOCTOR: ELIE DILLARD MD,LORENZO BIRTHDATE: [birth year] DOS: 06/16/2016 PULMONARY PROGRESS NOTE SUBJECTIVE: She has been continued on mechanical ventilator, noted awake, continued on ____ on mechanical ventilation. The respiratory rate has been decreased to 6 breaths per minute. The pressure support was continued at 15, the PEEP for this patient was changed to 5 from 7. OBJECTIVE: VITAL SIGNS: Shows normal temperature, respiratory rate 13, heart rate of 70, blood pressure 118/55. The pulse oxygen saturation of the patient recorded on 30% oxygen was 96% saturation. HEENT: Tracheostomy remains in place. NECK: Supple. CARDIOVASCULAR: S1, S2 audible. LUNGS: Without any wheeze or crackles. ABDOMEN: Soft, nontender. LABORATORY DATA: BUN 26, creatinine was normal, carbon dioxide 34. CBC, mild anemia, otherwise normal. IMPRESSION: Stable respiratory status, ventilatory dependency, history of myotonic muscular dystrophy. Resolved acute pneumonia and improved atelectasis of lower lungs. PLAN OF TREATMENT: No changes in the plan of management. The patient has been accepted at the [place] [facility] in [place], [place], for this patient. The authorization of the patient has been already approved for the transfer. The patient most likely will be transferred to [facility] for further continued medical management of the respiratory failure, ventilator dependency management. LORENZO DELGADILLO MD CM:PNTRANS [id number] LORENZO DILLARD MD 06/17/16 0156 interface
--- NOTE | ~2016-05-28 | PR ---
[place], [place] PROGRESS NOTE NAME: TOÑO GARDNER UNIT #: [id number] ROOM: [facility] DOCTOR: ELIE DILLARD MD,LORENZO BIRTHDATE: [birth year] DOS: 06/06/2016 SUBJECTIVE: She was seen and examined on 06/06/2016. She has been noted comfortable at this time, noted awake. The patient was continued on several hours of CPAP mode of mechanical ventilation yesterday. Arterial blood gas she was still noted with hypercarbia. She was switched back to assist control mode on mechanical ventilation last night and sedated with low dose of Diprivan. The sedation was discontinued again this morning and she was started on CPAP mode of mechanical ventilation approximately at 8:00 a.m. She has been noted without any acute hemodynamic instability. The patient pointing to her tube for this patient for extubation. OBJECTIVE: VITAL SIGNS: For the patient which has been recorded showed the temperature noted normal, respiratory rate 12, heart rate of 66-75, blood pressure 92/52-116/51. Intake for the patient recorded as 1280 mL. Output was 900 mL recorded. The pulse oxygen saturation of the patient was noted as 99% saturation on 30% oxygen supplementation. HEENT: Shows head was atraumatic. The patient remains orally intubated. Orogastric tube is in place. NECK: Supple. CARDIOVASCULAR SYSTEM: S1, S2 audible. LUNGS: Noted moderate reduction in the breath sounds bilaterally. There were no wheezing or crackles were noted at the present time. ABDOMEN: Noted with chronic obesity. Bowel sounds present. EXTREMITIES: Shows no acute edema at the present time. LABORATORY DATA: Arterial blood gases: Two arterial blood gases done yesterday, first arterial blood gas CPAP of 5, pressure support of 10, pH of 7.32, pCO2 of 50.4, pO2 of 87.2, after 2 hours, another 4 hours arterial blood gas of the patient on the same mode of CPAP, pH of 7.32, pCO2 of 54, pO2 of 70.8 recorded. The arterial blood gas assist control mode this morning, pH of 7.48, pCO2 of 33.9, pO2 of 65.4. The CBC of the patient this morning, hemoglobin 8.7, hematocrit 30.4, WBC count 4.9 with platelet count was noted as 108,000. The BMP was noted with normal BUN and creatinine. Sodium mildly elevated at 149. Culture of the bronchial washing shows normal kevin. Arterial blood gas of the patient on CPAP of 5, pressure support of 10 today, pH of 7.26, pCO2 of 61, pO2 of 69 with 40% oxygen supplementation. IMPRESSION: 1. The patient with severe persistent hypercapnia. The patient noted acute hypercapnia hypoxic respiratory failure. 2. History of myotonic dystrophy as well. 3. Resting hypercarbia. The patient was also assessed because of the muscular dystrophy. 4. Chronic obesity. 5. Resolving acute pneumonia and basilar areas of atelectasis. 6. Acute congestive systolic dysfunction, well compensated. Culture of the bronchial washing noted as normal kevin. [place], [place] PROGRESS NOTE NAME: TOÑO GARDNER UNIT #: [id number] ROOM: [facility] DOCTOR: LORENZO BLAIR MD BIRTHDATE: [birth year] PLAN OF TREATMENT: The patient has been getting Haldol for 5 mg q.4 hours p.r.n. for any distress. She will be changed to the pressure support of 15 and CPAP of 5 for this patient for another few hours. Detailed discussion will be done. The patient's family members were unavailable at this time for further plan of management. The patient may be considered for possible liberation of mechanical ventilation for the patient with the use of the BiPAP if the patient will need to have a clear understanding of the patient further advanced directives. Because of the muscular dystrophy of the patient and current ongoing medical problems the patient might require tracheostomy for further medical management of the respiratory failure. Continue in the meantime other previous treatment therapy, plan of management and nutritional support for the protein calorie malnutrition of the plan of management. Usual care. Other supportive therapy, plan of care. Total time for pulmonary critical care evaluation and management was 38 minutes. LORENZO DELGADILLO MD CM:PNVENKATESH [id number] LORENZO DILLARD MD 06/10/16 [id number] interface
--- NOTE | ~2016-05-28 | PR ---
[place], [place] PROGRESS NOTE NAME: [facility]ARDNER [facility] [id number] UNIT #: [id number] ROOM: [facility] DOCTOR: ELIE DILLARD MD,LORENZO BIRTHDATE: [birth year] DOS: 06/02/2016 PULMONARY FOLLOWUP SUBJECTIVE: She has been comfortably sitting at this time using the BiPAP. The patient has been ordered full face mask. The patient has been noted with gradual improvement in the oxygenation. The oxygen supplementation 3 liters nasal cannula was needed for this patient to maintain normal oxygen saturation. OBJECTIVE: VITAL SIGNS: For the patient, which has been recorded showed the temperature of the patient recorded normal, respiratory rate 14-21, heart rate 51, blood pressure 101/54-100/38. Pulse oxygen saturation of the patient noted on 30% oxygen 99% saturation. HEENT: Examination shows no acute change. NECK: Supple. CARDIOVASCULAR: S1, S2 audible. LUNGS: The patient was noted with improvement in air entry of the patient noted partially with the patient basilar crackles. ABDOMEN: Soft, nontender. LABORATORY DATA: The chest x-ray of the patient 1 view, which was done for the patient yesterday was reviewed. It shows still elevation of the right hemidiaphragm. AICD noted in place in the left chest as well. Difficult to exclude pulmonary infiltration. The patient exactly because of the lack of the lateral view with elevation of the hemidiaphragm. CBC was noted with mild anemia, hemoglobin of 9.6, hematocrit 33.5, WBC count was decreased mildly 4.3 with platelet count reduced 25,000 from 114,000 yesterday. IMPRESSION: 1. The patient with bradycardia, which are noted mildly symptomatic with history of atrial fibrillation, currently on multiple medications. 2. History of hypothyroidism. 3. Acute pneumonia for the patient with acute hypoxic and hypercapnic respiratory failure. 4. History of myotonic muscular dystrophy. 5. Thrombocytopenia for this patient was noted as well, exact etiology was unclear. PLAN OF TREATMENT: The patient is getting the Lovenox for deep vein thrombosis prophylaxis. The platelet direct and indirect antibodies and heparin-induced antibodies will be obtained. Continue oxygen supplementation, bronchodilators. Assessment per Cardiology needs to be done for the patient for bradyarrhythmia with history of past atrial fibrillation. Continue the BiPAP for this patient as tolerated. Supportive plan and management as well. Usual care. Obtain a chest x-ray, PA and lateral view of the patient in the morning for this patient to reassess the pulmonary infiltration and atelectasis improvement. Other supportive plan of management. The patient could be transferred to telemetry floor if agreed upon by the other physicians. [place], [place] PROGRESS NOTE NAME: TOÑO GARDNER UNIT #: [id number] ROOM: [facility] DOCTOR: ELIE DILLARD MD,LORENZO BIRTHDATE: [birth year] LORENZO DELGADILLO MD CM:PNTRANS [id number] LORENZO DILLARD MD 06/02/16 2016 interface
--- NOTE | ~2016-05-28 | O ---
[place], [place] OPERATIVE NOTE NAME: TOÑO GARDNER UNIT #: [id number] ROOM: [facility] DOCTOR: DWAINE STAFFORD MD BIRTHDATE: [birth year] DOS: 06/11/2016 PREOPERATIVE DIAGNOSIS: Respiratory failure. POSTOPERATIVE DIAGNOSIS: Respiratory failure. OPERATION: Tracheostomy. SURGEON: Dr. Stafford. ANESTHESIA: General endotracheal. HISTORY AND INDICATIONS: The patient with respiratory failure. She is being taken to the operating room for tracheostomy. OPERATIVE FINDINGS AND PROCEDURE: The patient was on mechanical ventilation and had an endotracheal tube in place. She was transferred from the ICU to the operating room. General anesthesia was induced. The patient was positioned supine on the OR table, and the neck was extended with a shoulder roll. Anterior cervical region was prepped and draped in a standard sterile fashion. A vertical incision of 2 cm length was made in the midline overlying the trachea. Dissection was continued through skin and subcutaneous tissues. The strap muscles were . The thyroid isthmus was elevated, and the tracheal cartilage was identified. An incision was made through the trachea. The endotracheal tube was withdrawn, and a number 8 Shiley tracheostomy tube was placed and secured without difficulty. The patient tolerated the procedure well. Postoperative chest x-ray showed good position and no pneumothorax. DWAINE STAFFORD MD CM:OPRECORD:OPERATIVE NOTE [id number] DWAINE STAFFORD MD 06/11/16 1113 interface
--- NOTE | ~2016-05-28 | PR ---
[place], [place] PROGRESS NOTE NAME: TOÑO GARDNER [facility] #: [id number] UNIT #: [id number] ROOM: [facility] DOCTOR: ELIE DILLARD MD,LORENZO BIRTHDATE: [birth year] DOS: 06/09/2016 PULMONARY CRITICAL CARE EVALUATION AND MANAGEMENT NOTE SUBJECTIVE: The patient remains on the BiPAP, with the patient dependent as well. With removal of BiPAP, noted severe oxygen desaturation with the oxygen saturation above 60%. She was also noted periods of apneas at times intermittently. She had not been given any sedative medication or others. She was noted awake and alert. The patient was agreeable for the possible tracheostomy if that needs to be done. OBJECTIVE: VITAL SIGNS: Shows normal temperature recorded to 99.3 degree Fahrenheit, respiratory rate 21-18, heart rate 62-74, blood pressure 124/55 to 113/58. Intake for this patient is 2400 mL, output 2300 mL, pulse oxygen saturation 45% with oxygen supplementation with a BiPAP setting of 20/12 was noted 96-97% saturation. HEENT: Chronic obesity. NECK: Supple. Head was atraumatic. Eyes anicteric. CARDIOVASCULAR: S1, S2 audible. LUNGS: Noted with moderate general reduction of breath sounds. There were no wheezing or crackles. ABDOMEN: Soft, nontender. EXTREMITIES: Showed no edema. LABORATORY DATA: The patient's CBC this morning, hemoglobin 9.3, hematocrit 23.6, WBC count and platelet count were normal. BMP of the patient was noted, sodium 148, potassium 5.3, CO2 of 35, carbon dioxide of 105. IMPRESSION: 1. The patient with acute hypercapnic hypoxemic respiratory failure with difficulty of ventilation. The patient uses the BiPAP as well as apneas of the patient were also noted. The apnea could be central in origin. 2. Metabolic alkalosis. 3. Mild hyperkalemia with the patient in hypernatremia related to the diuretics administration. 4. History of congestive heart failure with systolic dysfunction. 5. History of myopathy, myotonic dystrophy. PLAN OF TREATMENT: Continue the patient on current plan of management with the BiPAP. The patient needs to be reintubated and tracheostomy. Consultation would be obtained from the ENT specialist ____ for the patient for tracheostomy. This is to be cleared up from the patient's family members. However, the patient does agree for tracheostomy. In the meantime, continue the BiPAP for the patient and other treatment plan of management. DVT prophylaxis, monitor electrolytes and correct the patient accordingly, supportive therapy, plan of management and other care. Total time for pulmonary critical care evaluation and management was 35 minutes. [place], [place] PROGRESS NOTE NAME: TOÑO GARDNER UNIT #: [id number] ROOM: [facility] DOCTOR: LORENZO BLAIR MD BIRTHDATE: [birth year] LORENZO DELGADILLO MD CM:BOB [id number] LORENZO DILLARD MD 06/10/16 0118 interface
[~2016-05-28 14:44] MED LIST: ASPIR LOW81 MG PO; B12-METHYL1000 MCG PO; CYMBALTA20 MG PO; CYMBALTA60 MG PO; ESTROGEN PO; LISINOPRIL; LISINOPRIL2.5 MG PO; METOPROLOL; METOPROLOL25 MG PO; PRAVACHOL20 MG PO; PRAVACHOL40 MG PO; PROPAFENONE HC150 MG PO; SYNTHROID; Synthroid,Levo50 MCG PO; ZYRTEC10 MG PO
[2016-05-28 15:32] LABS: BASO % 0.5 % (0.0-1.0); EOS # 0.3 10*3/uL (0.0-0.4); EOS % 6.8 % (1.0-4.0); HEMATOCRIT 45.3 % (37.0-47.0); LYMPH # 1.4 10*3/uL (1.3-4.4); LYMPH % 33.7 % (27.0-41.0); MEAN CORPUSCULAR HGB 25.5 pg (27.0-31.0); MEAN CORPUSCULAR HGB CONC 28.7 g/dl (33.0-37.0); MEAN PLATELET VOLUME 10.8 fl (9.6-12.3); MONO # 0.3 10*3/uL (0.1-1.0); MONO % 6.4 % (3.0-9.0); NEUT # 2.1 10*3/uL (2.3-7.9); NEUT % 52.1 % (47.0-73.0); PLATELET COUNT AUTOMATED 144 10*3/uL (130-400); RED BLOOD COUNT 5.09 10*6/uL (4.10-5.10); RED CELL DISTRI WIDTH 14.5 % (0-14.5); WHITE BLOOD COUNT 4.1 10*3/uL (4.8-10.8)
[2016-05-28 15:36] LABS: ABG CO2 CONTENT 33.3 mmol/L (23-27); ABG HCO3 31.2 mmol/l (22-26); ABG TEMPERATURE 98.1 F (98.0-99.0); ARTERIAL BLOOD GAS PH 7.281 (7.35-7.45); ARTERIAL BLOOD GAS PO2 63.9 mmHg (80-90)
[2016-05-28 15:52] LABS: ALBUMIN 3.4 gm/dl (3.1-4.5); ALKALINE PHOSPHATASE 131 U/L (45-117); BILIRUBIN, TOTAL 0.7 mg/dl (0.2-1.0); BUN 15 mg/dl (7-24); CARBON DIOXIDE 35 mmol/L (21-32); CHLORIDE 110 mmol/L (98-107); EST GLOM FILT AFRICAN AMERICAN > 60 ml/min; GLUCOSE 75 mg/dL (65-99); POTASSIUM 3.7 mmol/L (3.5-5.1); SGOT/AST 21 IU/L (3-35); SGPT/ALT 26 U/L (12-78); SODIUM 150 mmol/L (136-145); TOTAL PROTEIN 6.4 gm/dL (6.4-8.2)
[2016-05-29] VITALS: BP 146/85
[2016-05-29 00:43] LABS: CKMB 1.3 ng/ml (0.5-3.6); TROPONIN I 0.021 ng/ml (<0.045)
[2016-05-29 06:37] LABS: BILIRUBIN NEGATIVE (NEGATIVE); BLOOD NEGATIVE (NEGATIVE); CLARITY CLOUDY (CLEAR); COLOR YELLOW (YELLOW); GLUCOSE NEGATIVE (NEGATIVE); KETONE NEGATIVE (NEGATIVE); LEUKO ESTERASE NEGATIVE (NEGATIVE); NITRITE NEGATIVE (NEGATIVE); PROTEIN NEGATIVE (NEGATIVE)
[2016-05-29 07:02] LABS: BASO % 0.4 % (0.0-1.0); EOS % 0.4 % (1.0-4.0); HEMATOCRIT 47.4 % (37.0-47.0); HEMOGLOBIN 13.3 g/dl (12.0-16.0); IG # 0.1 10*3/uL (0.0-0.1); LYMPH # 0.5 10*3/uL (1.3-4.4); LYMPH % 10.1 % (27.0-41.0); MEAN CELL VOLUME 90.5 fl (81.0-99.0); MEAN CORPUSCULAR HGB 25.4 pg (27.0-31.0); MEAN CORPUSCULAR HGB CONC 28.1 g/dl (33.0-37.0); MEAN PLATELET VOLUME 11.4 fl (9.6-12.3); MONO # 0.1 10*3/uL (0.1-1.0); NEUT # 4.3 10*3/uL (2.3-7.9); NEUT % 86.3 % (47.0-73.0); PLATELET COUNT AUTOMATED 147 10*3/uL (130-400); RED BLOOD COUNT 5.24 10*6/uL (4.10-5.10); RED CELL DISTRI WIDTH 14.5 % (0-14.5)
[2016-05-29 07:15] LABS: BACTERIA 1+; EPITHELIAL CELLS 20-30
[2016-05-29 07:15] LABS: CKMB 1.2 ng/ml (0.5-3.6); TROPONIN I 0.02 ng/ml (<0.045)
[2016-05-29 07:16] LABS: URINE REFLEX COMMENT NO (NO)
[2016-05-29 07:32] LABS: PROTHROMBIN TIME 10.5 SECONDS (9.0-12.4)
[2016-05-29 07:35] LABS: ALBUMIN 3.3 gm/dl (3.1-4.5); ALKALINE PHOSPHATASE 138 U/L (45-117); BILIRUBIN, TOTAL 0.7 mg/dl (0.2-1.0); BUN 14 mg/dl (7-24); CARBON DIOXIDE 31 mmol/L (21-32); CHLORIDE 108 mmol/L (98-107); CHOLESTEROL 189 mg/dL (<200); EST GLOM FILT AFRICAN AMERICAN > 60 ml/min; GLUCOSE 169 mg/dL (65-99); HDL CHOLESTEROL 55 mg/dl (40-60); LDL CHOLESTEROL 112 mg/dL (9-159); MAGNESIUM 2.2 mg/dL (1.5-2.1); PHOSPHOROUS 3.2 mg/dL (2.5-4.9); POTASSIUM 4.2 mmol/L (3.5-5.1); SGOT/AST 24 IU/L (3-35); SGPT/ALT 27 U/L (12-78); SODIUM 148 mmol/L (136-145); TOTAL PROTEIN 6.6 gm/dL (6.4-8.2); TRIGLYCERIDES 112 mg/dl (<150); VLDL CHOLESTEROL 22 mg/dL (6-40)
[2016-05-29 08:00] VITALS: BP 120/72
[2016-05-29 08:29] LABS: FOLIC ACID 11.36 ng/mL (>5.38); VITAMIN D, 25-HYDROXY 16.6 ng/mL (30-100)
[2016-05-29 12:00] VITALS: BP 160/90
[2016-05-29 12:21] LABS: CKMB 1.1 ng/ml (0.5-3.6); TROPONIN I 0.015 ng/ml (<0.045)
[2016-05-29 16:00] VITALS: BP 125/64
[2016-05-29 18:04] LABS: ABG BASE EXCESS 1.7 mmol/L (-2.0-2.0); ABG CO2 CONTENT 33.3 mmol/L (23-27); ABG TEMPERATURE 98.2 F (98.0-99.0); ARTERIAL BLOOD GAS PH 7.235 (7.35-7.45); ARTERIAL BLOOD GAS PO2 55.6 mmHg (80-90)
[2016-05-29 20:00] VITALS: BP 145/64
[2016-05-29 21:21] LABS: ABG BASE EXCESS 1.4 mmol/L (-2.0-2.0); ABG CO2 CONTENT 33.2 mmol/L (23-27); ABG HCO3 30.9 mmol/l (22-26); ABG TEMPERATURE 98.1 F (98.0-99.0); ARTERIAL BLOOD GAS PH 7.227 (7.35-7.45); ARTERIAL BLOOD GAS PO2 99.8 mmHg (80-90)
[2016-05-29 22:00] VITALS: BP 154/86
[2016-05-30] VITALS: BP 154/86
[2016-05-30 04:00] VITALS: BP 99/59
[2016-05-30 05:55] LABS: BASO % 0.2 % (0.0-1.0); EOS % 0.2 % (1.0-4.0); LYMPH # 1.4 10*3/uL (1.3-4.4); LYMPH % 24.9 % (27.0-41.0); MEAN CELL VOLUME 92.3 fl (81.0-99.0); MEAN CORPUSCULAR HGB 25.7 pg (27.0-31.0); MEAN CORPUSCULAR HGB CONC 27.8 g/dl (33.0-37.0); MEAN PLATELET VOLUME 10.9 fl (9.6-12.3); MONO # 0.4 10*3/uL (0.1-1.0); MONO % 7.7 % (3.0-9.0); NEUT # 3.7 10*3/uL (2.3-7.9); NEUT % 66.5 % (47.0-73.0); PLATELET COUNT AUTOMATED 145 10*3/uL (130-400); RED BLOOD COUNT 4.28 10*6/uL (4.10-5.10); RED CELL DISTRI WIDTH 14.7 % (0-14.5); WHITE BLOOD COUNT 5.6 10*3/uL (4.8-10.8)
[2016-05-30 05:58] LABS: BUN 15 mg/dl (7-24); CARBON DIOXIDE 33 mmol/L (21-32); CHLORIDE 109 mmol/L (98-107); EST GLOM FILT AFRICAN AMERICAN > 60 ml/min; GLUCOSE 118 mg/dL (65-99); SODIUM 148 mmol/L (136-145)
[2016-05-30 06:15] LABS: HEMATOCRIT 39.5 % (37.0-47.0)
[2016-05-30 08:00] VITALS: BP 135/81
[2016-05-30 08:02] LABS: ABG BASE EXCESS 1.1 mmol/L (-2.0-2.0); ABG CO2 CONTENT 31.9 mmol/L (23-27); ABG HCO3 29.7 mmol/l (22-26); ARTERIAL BLOOD GAS PH 7.248 (7.35-7.45)
[2016-05-30 12:00] VITALS: BP 137/65
[2016-05-30 12:24] LABS: ABG BASE EXCESS 1.5 mmol/L (-2.0-2.0); ABG CO2 CONTENT 31.8 mmol/L (23-27); ABG HCO3 29.7 mmol/l (22-26); ARTERIAL BLOOD GAS PH 7.264 (7.35-7.45); ARTERIAL BLOOD GAS PO2 80.6 mmHg (80-90)
[2016-05-30 16:00] VITALS: BP 153/71
[2016-05-30 20:00] VITALS: BP 132/56
[2016-05-31] VITALS: BP 120/63
[2016-05-31 04:00] VITALS: BP 112/58
[2016-05-31 06:16] LABS: BASO % 0.3 % (0.0-1.0); EOS # 0.1 10*3/uL (0.0-0.4); EOS % 2.3 % (1.0-4.0); HEMATOCRIT 36.5 % (37.0-47.0); HEMOGLOBIN 10.4 g/dl (12.0-16.0); LYMPH # 1.9 10*3/uL (1.3-4.4); LYMPH % 32.4 % (27.0-41.0); MEAN CELL VOLUME 90.3 fl (81.0-99.0); MEAN CORPUSCULAR HGB 25.7 pg (27.0-31.0); MEAN CORPUSCULAR HGB CONC 28.5 g/dl (33.0-37.0); MEAN PLATELET VOLUME 11.3 fl (9.6-12.3); MONO # 0.3 10*3/uL (0.1-1.0); MONO % 5.5 % (3.0-9.0); NEUT # 3.5 10*3/uL (2.3-7.9); NEUT % 59.2 % (47.0-73.0); PLATELET COUNT AUTOMATED 138 10*3/uL (130-400); RED BLOOD COUNT 4.04 10*6/uL (4.10-5.10); RED CELL DISTRI WIDTH 14.9 % (0-14.5)
[2016-05-31 06:43] LABS: BUN 16 mg/dl (7-24); CARBON DIOXIDE 32 mmol/L (21-32); CHLORIDE 108 mmol/L (98-107); EST GLOM FILT AFRICAN AMERICAN > 60 ml/min; GLUCOSE 93 mg/dL (65-99); POTASSIUM 3.9 mmol/L (3.5-5.1); SODIUM 146 mmol/L (136-145)
[2016-05-31 08:00] VITALS: BP 120/65
[2016-05-31 09:22] LABS: ABG BASE EXCESS 1.1 mmol/L (-2.0-2.0); ABG CO2 CONTENT 30.1 mmol/L (23-27); ABG HCO3 28.2 mmol/l (22-26); ABG TEMPERATURE 97.7 F (98.0-99.0); ARTERIAL BLOOD GAS PH 7.294 (7.35-7.45); ARTERIAL BLOOD GAS PO2 59.5 mmHg (80-90)
[2016-05-31 12:00] VITALS: BP 135/86
[2016-05-31 16:00] VITALS: BP 131/77
[2016-05-31 20:00] VITALS: BP 130/88
[2016-06-01] VITALS: BP 136/71
[2016-06-01 04:00] VITALS: BP 133/70
[2016-06-01 06:36] LABS: ABG BASE EXCESS 1.3 mmol/L (-2.0-2.0); ABG CO2 CONTENT 29.5 mmol/L (23-27); ABG HCO3 27.7 mmol/l (22-26); ABG TEMPERATURE 97.7 F (98.0-99.0); ARTERIAL BLOOD GAS PH 7.323 (7.35-7.45); ARTERIAL BLOOD GAS PO2 89.8 mmHg (80-90)
[2016-06-01 08:00] VITALS: BP 130/68
[2016-06-01 09:40] LABS: ALKALINE PHOSPHATASE 105 U/L (45-117); BILIRUBIN, TOTAL 0.6 mg/dl (0.2-1.0); BUN 12 mg/dl (7-24); CARBON DIOXIDE 31 mmol/L (21-32); CHLORIDE 111 mmol/L (98-107); EST GLOM FILT AFRICAN AMERICAN > 60 ml/min; GLUCOSE 83 mg/dL (65-99); POTASSIUM 4.1 mmol/L (3.5-5.1); SGOT/AST 20 IU/L (3-35); SGPT/ALT 23 U/L (12-78); SODIUM 144 mmol/L (136-145); TOTAL PROTEIN 5.6 gm/dL (6.4-8.2)
[2016-06-01 12:00] VITALS: BP 114/71
[2016-06-01 14:40] LABS: BASO % 0.2 % (0.0-1.0); EOS # 0.3 10*3/uL (0.0-0.4); EOS % 5.1 % (1.0-4.0); HEMATOCRIT 36.9 % (37.0-47.0); HEMOGLOBIN 10.7 g/dl (12.0-16.0); LYMPH # 0.9 10*3/uL (1.3-4.4); LYMPH % 16.8 % (27.0-41.0); MEAN CELL VOLUME 89.3 fl (81.0-99.0); MEAN CORPUSCULAR HGB 25.9 pg (27.0-31.0); MEAN PLATELET VOLUME 11.2 fl (9.6-12.3); MONO # 0.3 10*3/uL (0.1-1.0); MONO % 5.8 % (3.0-9.0); NEUT % 71.9 % (47.0-73.0); PLATELET COUNT AUTOMATED 114 10*3/uL (130-400); RED BLOOD COUNT 4.13 10*6/uL (4.10-5.10); WHITE BLOOD COUNT 5.5 10*3/uL (4.8-10.8)
[2016-06-01 15:40] VITALS: BP 121/75
[2016-06-01 20:00] VITALS: BP 125/72
[2016-06-02] VITALS: BP 115/57
[2016-06-02 04:00] VITALS: BP 100/38
[2016-06-02 05:53] LABS: ABG BASE EXCESS 0.7 mmol/L (-2.0-2.0); ABG CO2 CONTENT 28.6 mmol/L (23-27); ABG HCO3 26.9 mmol/l (22-26); ARTERIAL BLOOD GAS PH 7.328 (7.35-7.45); ARTERIAL BLOOD GAS PO2 85.2 mmHg (80-90)
[2016-06-02 06:15] LABS: BASO % 0.5 % (0.0-1.0); EOS # 0.3 10*3/uL (0.0-0.4); EOS % 6.6 % (1.0-4.0); HEMATOCRIT 33.5 % (37.0-47.0); HEMOGLOBIN 9.6 g/dl (12.0-16.0); LYMPH # 1.4 10*3/uL (1.3-4.4); LYMPH % 32.5 % (27.0-41.0); MEAN CELL VOLUME 90.1 fl (81.0-99.0); MEAN CORPUSCULAR HGB 25.8 pg (27.0-31.0); MEAN CORPUSCULAR HGB CONC 28.7 g/dl (33.0-37.0); MONO # 0.3 10*3/uL (0.1-1.0); MONO % 6.8 % (3.0-9.0); NEUT # 2.3 10*3/uL (2.3-7.9); NEUT % 53.4 % (47.0-73.0); PLATELET COUNT AUTOMATED 105 10*3/uL (130-400); RED BLOOD COUNT 3.72 10*6/uL (4.10-5.10); RED CELL DISTRI WIDTH 14.8 % (0-14.5); WHITE BLOOD COUNT 4.3 10*3/uL (4.8-10.8)
[2016-06-02 06:28] LABS: ALBUMIN 2.6 gm/dl (3.1-4.5); BUN 9 mg/dl (7-24); CARBON DIOXIDE 29 mmol/L (21-32); CHLORIDE 110 mmol/L (98-107); GLUCOSE 79 mg/dL (65-99); POTASSIUM 3.5 mmol/L (3.5-5.1); SODIUM 145 mmol/L (136-145)
[2016-06-02 06:32] LABS: ALKALINE PHOSPHATASE 91 U/L (45-117); BILIRUBIN, TOTAL 0.5 mg/dl (0.2-1.0); EST GLOM FILT AFRICAN AMERICAN > 60 ml/min; SGOT/AST 18 IU/L (3-35); SGPT/ALT 21 U/L (12-78); TOTAL PROTEIN 4.9 gm/dL (6.4-8.2)
[2016-06-02 08:00] VITALS: BP 101/54
[2016-06-02 12:00] VITALS: BP 99/61
[2016-06-02 16:04] VITALS: BP 90/60
[2016-06-02 20:00] VITALS: BP 136/71
[2016-06-03] VITALS (11 sets, daily range): BP systolic 102–135; BP diastolic 51–80
[2016-06-03 00:38] LABS: ABG BASE EXCESS -2.5 mmol/L (-2.0-2.0); ABG CO2 CONTENT 27.3 mmol/L (23-27); ABG HCO3 25.4 mmol/l (22-26); ARTERIAL BLOOD GAS PH 7.241 (7.35-7.45); ARTERIAL BLOOD GAS PO2 75.7 mmHg (80-90)
[2016-06-03 04:13] LABS: ABG BASE EXCESS -3.9 mmol/L (-2.0-2.0); ABG CO2 CONTENT 26.4 mmol/L (23-27); ABG HCO3 24.4 mmol/l (22-26); ARTERIAL BLOOD GAS PH 7.215 (7.35-7.45); ARTERIAL BLOOD GAS PO2 62.3 mmHg (80-90)
[2016-06-03 06:14] LABS: BASO % 0.4 % (0.0-1.0); EOS # 0.2 10*3/uL (0.0-0.4); EOS % 3.3 % (1.0-4.0); HEMATOCRIT 36.8 % (37.0-47.0); HEMOGLOBIN 10.5 g/dl (12.0-16.0); LYMPH # 0.6 10*3/uL (1.3-4.4); LYMPH % 12.4 % (27.0-41.0); MEAN CELL VOLUME 90.9 fl (81.0-99.0); MEAN CORPUSCULAR HGB 25.9 pg (27.0-31.0); MEAN CORPUSCULAR HGB CONC 28.5 g/dl (33.0-37.0); MONO # 0.4 10*3/uL (0.1-1.0); MONO % 6.8 % (3.0-9.0); NEUT % 76.5 % (47.0-73.0); PLATELET COUNT AUTOMATED 103 10*3/uL (130-400); RED BLOOD COUNT 4.05 10*6/uL (4.10-5.10); WHITE BLOOD COUNT 5.2 10*3/uL (4.8-10.8)
[2016-06-03 06:48] LABS: CHLORIDE 108 mmol/L (98-107); POTASSIUM 3.8 mmol/L (3.5-5.1); SODIUM 143 mmol/L (136-145)
[2016-06-03 07:00] LABS: ALBUMIN 2.9 gm/dl (3.1-4.5); ALKALINE PHOSPHATASE 99 U/L (45-117); BILIRUBIN, TOTAL 0.6 mg/dl (0.2-1.0); BUN 9 mg/dl (7-24); CARBON DIOXIDE 26 mmol/L (21-32); EST GLOM FILT AFRICAN AMERICAN > 60 ml/min; GLUCOSE 152 mg/dL (65-99); SGOT/AST 23 IU/L (3-35); SGPT/ALT 22 U/L (12-78); TOTAL PROTEIN 5.5 gm/dL (6.4-8.2)
[2016-06-03 08:23] LABS: ABG BASE EXCESS 0.2 mmol/L (-2.0-2.0); ABG CO2 CONTENT 25.1 mmol/L (23-27); ABG HCO3 23.9 mmol/l (22-26); ARTERIAL BLOOD GAS PH 7.438 (7.35-7.45)
[2016-06-03 14:11] LABS: HEPARIN ANTI-XA 117101 <0.10 IU/mL (.)
[2016-06-03 17:07] LABS: HEPARIN INDUCED PLATELET AB 0.127 OD (0.000-0.400)
[2016-06-04] VITALS (12 sets, daily range): BP systolic 105–140; BP diastolic 47–66
[2016-06-04 06:06] LABS: ALBUMIN 2.5 gm/dl (3.1-4.5); ALKALINE PHOSPHATASE 89 U/L (45-117); BILIRUBIN, TOTAL 0.7 mg/dl (0.2-1.0); BUN 8 mg/dl (7-24); CARBON DIOXIDE 28 mmol/L (21-32); CHLORIDE 111 mmol/L (98-107); EST GLOM FILT AFRICAN AMERICAN > 60 ml/min; GLUCOSE 98 mg/dL (65-99); POTASSIUM 3.4 mmol/L (3.5-5.1); SGOT/AST 24 IU/L (3-35); SGPT/ALT 18 U/L (12-78); SODIUM 146 mmol/L (136-145); TOTAL PROTEIN 4.8 gm/dL (6.4-8.2)
[2016-06-04 06:14] LABS: PREALBUMIN 12 mg/dl (20-40)
[2016-06-04 06:17] LABS: ABG BASE EXCESS 1.7 mmol/L (-2.0-2.0); ABG CO2 CONTENT 25.4 mmol/L (23-27); ABG HCO3 24.4 mmol/l (22-26); ABG TEMPERATURE 98.2 F (98.0-99.0); ARTERIAL BLOOD GAS PH 7.49 (7.35-7.45); ARTERIAL BLOOD GAS PO2 78.2 mmHg (80-90)
[2016-06-04 06:40] LABS: BASO % 0.2 % (0.0-1.0); EOS # 0.1 10*3/uL (0.0-0.4); EOS % 3.2 % (1.0-4.0); HEMATOCRIT 32.3 % (37.0-47.0); HEMOGLOBIN 9.8 g/dl (12.0-16.0); LYMPH # 0.7 10*3/uL (1.3-4.4); MEAN CORPUSCULAR HGB 26.2 pg (27.0-31.0); MEAN CORPUSCULAR HGB CONC 30.3 g/dl (33.0-37.0); MEAN PLATELET VOLUME 12.3 fl (9.6-12.3); MONO # 0.3 10*3/uL (0.1-1.0); MONO % 8.4 % (3.0-9.0); NEUT # 2.8 10*3/uL (2.3-7.9); NEUT % 69.7 % (47.0-73.0); PLATELET COUNT AUTOMATED 97 10*3/uL (130-400); RED BLOOD COUNT 3.74 10*6/uL (4.10-5.10); RED CELL DISTRI WIDTH 15.3 % (0-14.5); WHITE BLOOD COUNT 4.1 10*3/uL (4.8-10.8)
[2016-06-04 06:46] LABS: MEAN CELL VOLUME 86.4 fl (81.0-99.0)
[2016-06-05] VITALS (10 sets, daily range): BP systolic 84–148; BP diastolic 42–66
[2016-06-05 05:37] LABS: BUN 10 mg/dl (7-24); CARBON DIOXIDE 26 mmol/L (21-32); CHLORIDE 114 mmol/L (98-107); EST GLOM FILT AFRICAN AMERICAN > 60 ml/min; GLUCOSE 179 mg/dL (65-99); POTASSIUM 3.4 mmol/L (3.5-5.1); SODIUM 147 mmol/L (136-145)
[2016-06-05 05:39] LABS: ABG CO2 CONTENT 25.2 mmol/L (23-27); ABG HCO3 24.2 mmol/l (22-26); ABG TEMPERATURE 98.4 F (98.0-99.0); ARTERIAL BLOOD GAS PH 7.459 (7.35-7.45); ARTERIAL BLOOD GAS PO2 77.7 mmHg (80-90)
[2016-06-05 05:56] LABS: BASO % 0.2 % (0.0-1.0); EOS # 0.2 10*3/uL (0.0-0.4); EOS % 3.8 % (1.0-4.0); HEMATOCRIT 31.4 % (37.0-47.0); HEMOGLOBIN 9.4 g/dl (12.0-16.0); LYMPH # 0.6 10*3/uL (1.3-4.4); LYMPH % 14.2 % (27.0-41.0); MEAN CORPUSCULAR HGB CONC 29.9 g/dl (33.0-37.0); MEAN PLATELET VOLUME 13.2 fl (9.6-12.3); MONO # 0.3 10*3/uL (0.1-1.0); MONO % 7.9 % (3.0-9.0); NEUT # 3.1 10*3/uL (2.3-7.9); NEUT % 73.4 % (47.0-73.0); NUCLEATED RED BLOOD CELL 0.5 % (0.0-0.0); PLATELET COUNT AUTOMATED 93 10*3/uL (130-400); RED BLOOD COUNT 3.61 10*6/uL (4.10-5.10); RED CELL DISTRI WIDTH 15.9 % (0-14.5); WHITE BLOOD COUNT 4.2 10*3/uL (4.8-10.8)
[2016-06-05 14:07] LABS: ACID FAST SPEC PROCESSING Concentration (.)
[2016-06-05 15:17] LABS: ABG BASE EXCESS -0.1 mmol/L (-2.0-2.0); ABG CO2 CONTENT 27.4 mmol/L (23-27); ABG HCO3 25.8 mmol/l (22-26); ABG TEMPERATURE 97.9 F (98.0-99.0); ARTERIAL BLOOD GAS PH 7.327 (7.35-7.45); ARTERIAL BLOOD GAS PO2 87.2 mmHg (80-90)
[2016-06-05 17:06] LABS: PLT ASSOCIATED ANTI-la/lla Negative (Negative); PLT ASSOCIATED ANTI-llb/llla Negative (Negative)
[2016-06-05 18:43] LABS: ABG BASE EXCESS -0.4 mmol/L (-2.0-2.0); ABG CO2 CONTENT 27.8 mmol/L (23-27); ABG HCO3 26.1 mmol/l (22-26); ABG TEMPERATURE 97.9 F (98.0-99.0); ARTERIAL BLOOD GAS PH 7.302 (7.35-7.45); ARTERIAL BLOOD GAS PO2 70.8 mmHg (80-90)
[2016-06-06] VITALS: BP 104/44
[2016-06-06 04:00] VITALS: BP 93/52
[2016-06-06 05:20] LABS: ABG BASE EXCESS 2.5 mmol/L (-2.0-2.0); ABG CO2 CONTENT 26.4 mmol/L (23-27); ABG HCO3 25.4 mmol/l (22-26); ABG TEMPERATURE 98.6 F (98.0-99.0); ARTERIAL BLOOD GAS PH 7.487 (7.35-7.45); ARTERIAL BLOOD GAS PO2 66.4 mmHg (80-90)
[2016-06-06 06:04] LABS: BASO % 0.2 % (0.0-1.0); EOS # 0.3 10*3/uL (0.0-0.4); EOS % 5.5 % (1.0-4.0); HEMATOCRIT 30.4 % (37.0-47.0); HEMOGLOBIN 8.7 g/dl (12.0-16.0); LYMPH # 0.9 10*3/uL (1.3-4.4); LYMPH % 17.6 % (27.0-41.0); MEAN CELL VOLUME 89.1 fl (81.0-99.0); MEAN CORPUSCULAR HGB 25.5 pg (27.0-31.0); MEAN CORPUSCULAR HGB CONC 28.6 g/dl (33.0-37.0); MONO # 0.4 10*3/uL (0.1-1.0); MONO % 8.5 % (3.0-9.0); NEUT # 3.3 10*3/uL (2.3-7.9); NEUT % 67.6 % (47.0-73.0); PLATELET COUNT AUTOMATED 108 10*3/uL (130-400); RED BLOOD COUNT 3.41 10*6/uL (4.10-5.10); RED CELL DISTRI WIDTH 16.4 % (0-14.5); WHITE BLOOD COUNT 4.9 10*3/uL (4.8-10.8)
[2016-06-06 06:07] LABS: BUN 12 mg/dl (7-24); CARBON DIOXIDE 30 mmol/L (21-32); CHLORIDE 114 mmol/L (98-107); EST GLOM FILT AFRICAN AMERICAN > 60 ml/min; GLUCOSE 95 mg/dL (65-99); POTASSIUM 3.7 mmol/L (3.5-5.1); SODIUM 149 mmol/L (136-145)
[2016-06-06 08:00] VITALS: BP 111/57
[2016-06-06 12:00] VITALS: BP 124/61
[2016-06-06 12:16] LABS: ABG BASE EXCESS -0.3 mmol/L (-2.0-2.0); ABG CO2 CONTENT 28.5 mmol/L (23-27); ABG HCO3 26.6 mmol/l (22-26); ABG TEMPERATURE 99.7 F (98.0-99.0); ARTERIAL BLOOD GAS PH 7.265 (7.35-7.45)
[2016-06-06 16:00] VITALS: BP 118/56
[2016-06-06 20:00] VITALS: BP 114/57
[2016-06-07] VITALS: BP 109/71
[2016-06-07 04:00] VITALS: BP 108/64
[2016-06-07 05:49] LABS: BUN 17 mg/dl (7-24); CARBON DIOXIDE 30 mmol/L (21-32); CHLORIDE 113 mmol/L (98-107); EST GLOM FILT AFRICAN AMERICAN > 60 ml/min; GLUCOSE 114 mg/dL (65-99); MAGNESIUM 2.3 mg/dL (1.5-2.1); POTASSIUM 3.8 mmol/L (3.5-5.1); SODIUM 147 mmol/L (136-145)
[2016-06-07 05:50] LABS: PHOSPHOROUS 2.1 mg/dL (2.5-4.9)
[2016-06-07 05:54] LABS: ABG BASE EXCESS 3.4 mmol/L (-2.0-2.0); ABG CO2 CONTENT 27.5 mmol/L (23-27); ABG HCO3 26.5 mmol/l (22-26); ABG TEMPERATURE 98.9 F (98.0-99.0); ARTERIAL BLOOD GAS PH 7.488 (7.35-7.45); ARTERIAL BLOOD GAS PO2 80.9 mmHg (80-90)
[2016-06-07 06:08] LABS: BASO % 0.4 % (0.0-1.0); EOS # 0.3 10*3/uL (0.0-0.4); EOS % 5.1 % (1.0-4.0); HEMATOCRIT 30.1 % (37.0-47.0); HEMOGLOBIN 8.7 g/dl (12.0-16.0); LYMPH # 0.9 10*3/uL (1.3-4.4); LYMPH % 15.9 % (27.0-41.0); MEAN CELL VOLUME 90.1 fl (81.0-99.0); MEAN CORPUSCULAR HGB CONC 28.9 g/dl (33.0-37.0); MEAN PLATELET VOLUME 12.7 fl (9.6-12.3); MONO # 0.4 10*3/uL (0.1-1.0); MONO % 7.9 % (3.0-9.0); NEUT # 3.9 10*3/uL (2.3-7.9); NEUT % 70.3 % (47.0-73.0); PLATELET COUNT AUTOMATED 132 10*3/uL (130-400); RED BLOOD COUNT 3.34 10*6/uL (4.10-5.10); RED CELL DISTRI WIDTH 16.2 % (0-14.5); WHITE BLOOD COUNT 5.5 10*3/uL (4.8-10.8)
[2016-06-07 08:00] VITALS: BP 123/66
[2016-06-07 12:00] VITALS: BP 134/64
[2016-06-07 16:00] VITALS: BP 122/60
[2016-06-07 16:45] LABS: ABG BASE EXCESS 0.2 mmol/L (-2.0-2.0); ABG CO2 CONTENT 29.6 mmol/L (23-27); ABG HCO3 27.6 mmol/l (22-26); ABG TEMPERATURE 96.1 F (98.0-99.0); ARTERIAL BLOOD GAS PH 7.278 (7.35-7.45)
[2016-06-07 20:00] VITALS: BP 118/58
[2016-06-08] VITALS: BP 116/68
[2016-06-08 04:00] VITALS: BP 102/62
[2016-06-08 05:45] LABS: ABG BASE EXCESS 2.1 mmol/L (-2.0-2.0); ABG CO2 CONTENT 30.5 mmol/L (23-27); ABG HCO3 28.7 mmol/l (22-26); ABG TEMPERATURE 97.3 F (98.0-99.0); ARTERIAL BLOOD GAS PH 7.319 (7.35-7.45); ARTERIAL BLOOD GAS PO2 83.3 mmHg (80-90)
[2016-06-08 06:22] LABS: BUN 19 mg/dl (7-24); CARBON DIOXIDE 34 mmol/L (21-32); CHLORIDE 110 mmol/L (98-107); EST GLOM FILT AFRICAN AMERICAN > 60 ml/min; GLUCOSE 110 mg/dL (65-99); SODIUM 148 mmol/L (136-145)
[2016-06-08 06:23] LABS: BASO % 0.2 % (0.0-1.0); EOS # 0.3 10*3/uL (0.0-0.4); EOS % 6.3 % (1.0-4.0); HEMATOCRIT 33.9 % (37.0-47.0); HEMOGLOBIN 9.5 g/dl (12.0-16.0); LYMPH # 0.9 10*3/uL (1.3-4.4); LYMPH % 18.2 % (27.0-41.0); MEAN CELL VOLUME 92.1 fl (81.0-99.0); MEAN CORPUSCULAR HGB 25.8 pg (27.0-31.0); MEAN PLATELET VOLUME 12.3 fl (9.6-12.3); MONO # 0.5 10*3/uL (0.1-1.0); MONO % 9.4 % (3.0-9.0); NEUT # 3.2 10*3/uL (2.3-7.9); NEUT % 65.1 % (47.0-73.0); PLATELET COUNT AUTOMATED 164 10*3/uL (130-400); POTASSIUM 4.8 mmol/L (3.5-5.1); RED BLOOD COUNT 3.68 10*6/uL (4.10-5.10); RED CELL DISTRI WIDTH 16.2 % (0-14.5); WHITE BLOOD COUNT 4.9 10*3/uL (4.8-10.8)
[2016-06-08 08:00] VITALS: BP 133/60
[2016-06-08 12:00] VITALS: BP 132/70
[2016-06-08 16:00] VITALS: BP 120/61
[2016-06-08 20:00] VITALS: BP 127/67
[2016-06-09] VITALS (8 sets, daily range): BP systolic 98–125; BP diastolic 46–58
[2016-06-09 05:32] LABS: BUN 24 mg/dl (7-24); CARBON DIOXIDE 35 mmol/L (21-32); CHLORIDE 109 mmol/L (98-107); EST GLOM FILT AFRICAN AMERICAN > 60 ml/min; GLUCOSE 105 mg/dL (65-99); PHOSPHOROUS 3.2 mg/dL (2.5-4.9); POTASSIUM 5.3 mmol/L (3.5-5.1); SODIUM 148 mmol/L (136-145)
[2016-06-09 05:59] LABS: BASO % 0.4 % (0.0-1.0); EOS # 0.2 10*3/uL (0.0-0.4); EOS % 4.8 % (1.0-4.0); HEMATOCRIT 33.6 % (37.0-47.0); HEMOGLOBIN 9.3 g/dl (12.0-16.0); LYMPH % 19.8 % (27.0-41.0); MEAN CELL VOLUME 94.6 fl (81.0-99.0); MEAN CORPUSCULAR HGB 26.2 pg (27.0-31.0); MEAN CORPUSCULAR HGB CONC 27.7 g/dl (33.0-37.0); MONO # 0.4 10*3/uL (0.1-1.0); MONO % 8.9 % (3.0-9.0); NEUT # 3.3 10*3/uL (2.3-7.9); NEUT % 65.7 % (47.0-73.0); PLATELET COUNT AUTOMATED 157 10*3/uL (130-400); RED BLOOD COUNT 3.55 10*6/uL (4.10-5.10); RED CELL DISTRI WIDTH 15.8 % (0-14.5)
[2016-06-09 14:58] LABS: ABG BASE EXCESS 8.3 mmol/L (-2.0-2.0); ABG CO2 CONTENT 37.4 mmol/L (23-27); ABG HCO3 35.3 mmol/l (22-26); ABG TEMPERATURE 99.1 F (98.0-99.0); ARTERIAL BLOOD GAS PH 7.33 (7.35-7.45)
[2016-06-09 22:37] LABS: ABG BASE EXCESS 10.6 mmol/L (-2.0-2.0); ABG CO2 CONTENT 35.1 mmol/L (23-27); ABG HCO3 33.9 mmol/l (22-26); ABG TEMPERATURE 99.1 F (98.0-99.0); ARTERIAL BLOOD GAS PH 7.544 (7.35-7.45)
[2016-06-10] VITALS (12 sets, daily range): BP systolic 92–125; BP diastolic 41–69
[2016-06-10 05:37] LABS: BUN 25 mg/dl (7-24); CARBON DIOXIDE 35 mmol/L (21-32); CHLORIDE 103 mmol/L (98-107); EST GLOM FILT AFRICAN AMERICAN > 60 ml/min; GLUCOSE 86 mg/dL (65-99); POTASSIUM 4.8 mmol/L (3.5-5.1); SODIUM 144 mmol/L (136-145)
[2016-06-10 05:52] LABS: BASO % 0.5 % (0.0-1.0); EOS # 0.3 10*3/uL (0.0-0.4); EOS % 4.5 % (1.0-4.0); HEMATOCRIT 29.3 % (37.0-47.0); HEMOGLOBIN 8.5 g/dl (12.0-16.0); LYMPH # 1.1 10*3/uL (1.3-4.4); LYMPH % 18.6 % (27.0-41.0); MEAN CORPUSCULAR HGB 26.6 pg (27.0-31.0); MEAN PLATELET VOLUME 11.8 fl (9.6-12.3); MONO # 0.5 10*3/uL (0.1-1.0); MONO % 7.7 % (3.0-9.0); NEUT % 68.4 % (47.0-73.0); PLATELET COUNT AUTOMATED 170 10*3/uL (130-400); RED CELL DISTRI WIDTH 15.2 % (0-14.5); WHITE BLOOD COUNT 5.8 10*3/uL (4.8-10.8)
[2016-06-10 05:58] LABS: MEAN CELL VOLUME 91.6 fl (81.0-99.0)
[2016-06-10 06:53] LABS: ABG BASE EXCESS 8.7 mmol/L (-2.0-2.0); ABG CO2 CONTENT 34.9 mmol/L (23-27); ABG HCO3 33.4 mmol/l (22-26); ABG TEMPERATURE 98.9 F (98.0-99.0); ARTERIAL BLOOD GAS PH 7.448 (7.35-7.45); ARTERIAL BLOOD GAS PO2 67.7 mmHg (80-90)
[2016-06-11] VITALS (12 sets, daily range): BP systolic 94–136; BP diastolic 50–84
[2016-06-11 04:57] LABS: ABG BASE EXCESS 7.9 mmol/L (-2.0-2.0); ABG CO2 CONTENT 33.7 mmol/L (23-27); ABG HCO3 32.3 mmol/l (22-26); ABG TEMPERATURE 98.7 F (98.0-99.0); ARTERIAL BLOOD GAS PH 7.457 (7.35-7.45); ARTERIAL BLOOD GAS PO2 65.9 mmHg (80-90)
[2016-06-11 06:09] LABS: BASO % 0.2 % (0.0-1.0); EOS # 0.3 10*3/uL (0.0-0.4); EOS % 6.1 % (1.0-4.0); HEMATOCRIT 29.6 % (37.0-47.0); HEMOGLOBIN 8.6 g/dl (12.0-16.0); LYMPH # 0.9 10*3/uL (1.3-4.4); LYMPH % 21.7 % (27.0-41.0); MEAN CELL VOLUME 88.9 fl (81.0-99.0); MEAN CORPUSCULAR HGB 25.8 pg (27.0-31.0); MEAN CORPUSCULAR HGB CONC 29.1 g/dl (33.0-37.0); MEAN PLATELET VOLUME 11.7 fl (9.6-12.3); MONO # 0.4 10*3/uL (0.1-1.0); MONO % 8.7 % (3.0-9.0); NEUT # 2.7 10*3/uL (2.3-7.9); NEUT % 62.8 % (47.0-73.0); PLATELET COUNT AUTOMATED 154 10*3/uL (130-400); RED BLOOD COUNT 3.33 10*6/uL (4.10-5.10); RED CELL DISTRI WIDTH 15.3 % (0-14.5); WHITE BLOOD COUNT 4.2 10*3/uL (4.8-10.8)
[2016-06-11 06:44] LABS: BUN 21 mg/dl (7-24); CARBON DIOXIDE 36 mmol/L (21-32); CHLORIDE 104 mmol/L (98-107); EST GLOM FILT AFRICAN AMERICAN > 60 ml/min; GLUCOSE 75 mg/dL (65-99); POTASSIUM 4.3 mmol/L (3.5-5.1); SODIUM 143 mmol/L (136-145)
[2016-06-12] VITALS (9 sets, daily range): BP systolic 90–116; BP diastolic 44–63
[2016-06-12 05:07] LABS: BASO % 0.3 % (0.0-1.0); EOS # 0.3 10*3/uL (0.0-0.4); EOS % 7.6 % (1.0-4.0); HEMATOCRIT 29.3 % (37.0-47.0); HEMOGLOBIN 8.6 g/dl (12.0-16.0); LYMPH # 0.7 10*3/uL (1.3-4.4); LYMPH % 20.8 % (27.0-41.0); MEAN CELL VOLUME 88.8 fl (81.0-99.0); MEAN CORPUSCULAR HGB 26.1 pg (27.0-31.0); MEAN CORPUSCULAR HGB CONC 29.4 g/dl (33.0-37.0); MEAN PLATELET VOLUME 11.2 fl (9.6-12.3); MONO # 0.4 10*3/uL (0.1-1.0); MONO % 9.9 % (3.0-9.0); NEUT # 2.2 10*3/uL (2.3-7.9); NEUT % 61.1 % (47.0-73.0); PLATELET COUNT AUTOMATED 145 10*3/uL (130-400); RED CELL DISTRI WIDTH 15.5 % (0-14.5); WHITE BLOOD COUNT 3.6 10*3/uL (4.8-10.8)
[2016-06-12 05:08] LABS: BUN 22 mg/dl (7-24); CARBON DIOXIDE 34 mmol/L (21-32); CHLORIDE 105 mmol/L (98-107); EST GLOM FILT AFRICAN AMERICAN > 60 ml/min; GLUCOSE 103 mg/dL (65-99); SODIUM 146 mmol/L (136-145)
[2016-06-12 06:07] LABS: ABG BASE EXCESS 6.9 mmol/L (-2.0-2.0); ABG CO2 CONTENT 32.7 mmol/L (23-27); ABG HCO3 31.3 mmol/l (22-26); ABG TEMPERATURE 96.5 F (98.0-99.0); ARTERIAL BLOOD GAS PH 7.466 (7.35-7.45); ARTERIAL BLOOD GAS PO2 99.5 mmHg (80-90)
[2016-06-13] VITALS: BP 122/51
[2016-06-13 04:00] VITALS: BP 132/68
[2016-06-13 06:07] LABS: BASO % 0.4 % (0.0-1.0); EOS # 0.4 10*3/uL (0.0-0.4); EOS % 7.4 % (1.0-4.0); HEMOGLOBIN 8.8 g/dl (12.0-16.0); LYMPH % 19.5 % (27.0-41.0); MEAN CELL VOLUME 88.8 fl (81.0-99.0); MEAN CORPUSCULAR HGB CONC 29.3 g/dl (33.0-37.0); MEAN PLATELET VOLUME 11.3 fl (9.6-12.3); MONO # 0.4 10*3/uL (0.1-1.0); MONO % 8.2 % (3.0-9.0); NEUT # 3.2 10*3/uL (2.3-7.9); NEUT % 64.1 % (47.0-73.0); PLATELET COUNT AUTOMATED 175 10*3/uL (130-400); RED BLOOD COUNT 3.38 10*6/uL (4.10-5.10); RED CELL DISTRI WIDTH 15.7 % (0-14.5)
[2016-06-13 06:22] LABS: BUN 19 mg/dl (7-24); CARBON DIOXIDE 33 mmol/L (21-32); CHLORIDE 108 mmol/L (98-107); EST GLOM FILT AFRICAN AMERICAN > 60 ml/min; GLUCOSE 87 mg/dL (65-99); POTASSIUM 3.8 mmol/L (3.5-5.1); SODIUM 147 mmol/L (136-145)
[2016-06-13 07:37] LABS: ABG CO2 CONTENT 32.1 mmol/L (23-27); ABG HCO3 30.7 mmol/l (22-26)
[2016-06-13 07:39] LABS: ABG TEMPERATURE 98.4 F (98.0-99.0); ARTERIAL BLOOD GAS PH 7.425 (7.35-7.45); ARTERIAL BLOOD GAS PO2 64.7 mmHg (80-90)
[2016-06-13 08:00] VITALS: BP 132/68
[2016-06-13 12:00] VITALS: BP 104/50
[2016-06-13 16:00] VITALS: BP 99/44
[2016-06-13 20:00] VITALS: BP 104/54
[2016-06-14] VITALS: BP 105/47
[2016-06-14 04:00] VITALS: BP 118/54
[2016-06-14 06:02] LABS: BASO % 0.5 % (0.0-1.0); EOS # 0.3 10*3/uL (0.0-0.4); EOS % 7.9 % (1.0-4.0); HEMATOCRIT 30.3 % (37.0-47.0); HEMOGLOBIN 8.6 g/dl (12.0-16.0); LYMPH # 1.1 10*3/uL (1.3-4.4); LYMPH % 24.2 % (27.0-41.0); MEAN CELL VOLUME 91.3 fl (81.0-99.0); MEAN CORPUSCULAR HGB 25.9 pg (27.0-31.0); MEAN CORPUSCULAR HGB CONC 28.4 g/dl (33.0-37.0); MEAN PLATELET VOLUME 11.6 fl (9.6-12.3); MONO # 0.4 10*3/uL (0.1-1.0); MONO % 8.1 % (3.0-9.0); NEUT # 2.6 10*3/uL (2.3-7.9); NEUT % 59.1 % (47.0-73.0); PLATELET COUNT AUTOMATED 170 10*3/uL (130-400); RED BLOOD COUNT 3.32 10*6/uL (4.10-5.10); RED CELL DISTRI WIDTH 15.9 % (0-14.5); WHITE BLOOD COUNT 4.3 10*3/uL (4.8-10.8)
[2016-06-14 06:12] LABS: BUN 21 mg/dl (7-24); CARBON DIOXIDE 35 mmol/L (21-32); CHLORIDE 108 mmol/L (98-107); EST GLOM FILT AFRICAN AMERICAN > 60 ml/min; GLUCOSE 104 mg/dL (65-99); POTASSIUM 4.1 mmol/L (3.5-5.1); SODIUM 147 mmol/L (136-145)
[2016-06-14 08:00] VITALS: BP 105/63
[2016-06-14 08:22] LABS: ABG BASE EXCESS 5.7 mmol/L (-2.0-2.0); ABG CO2 CONTENT 33.4 mmol/L (23-27); ABG HCO3 31.6 mmol/l (22-26); ARTERIAL BLOOD GAS PH 7.356 (7.35-7.45); ARTERIAL BLOOD GAS PO2 86.3 mmHg (80-90)
[2016-06-14 12:00] VITALS: BP 130/64
[2016-06-14 15:00] VITALS: BP 105/53
[2016-06-14 20:00] VITALS: BP 114/58
[2016-06-15] VITALS: BP 110/52
[2016-06-15 03:33] VITALS: BP 110/86
[2016-06-15 08:00] VITALS: BP 94/41
[2016-06-15 08:42] LABS: BASO % 0.2 % (0.0-1.0); EOS # 0.5 10*3/uL (0.0-0.4); EOS % 8.6 % (1.0-4.0); HEMATOCRIT 31.9 % (37.0-47.0); LYMPH # 1.2 10*3/uL (1.3-4.4); LYMPH % 19.5 % (27.0-41.0); MEAN CELL VOLUME 91.7 fl (81.0-99.0); MEAN CORPUSCULAR HGB 25.9 pg (27.0-31.0); MEAN CORPUSCULAR HGB CONC 28.2 g/dl (33.0-37.0); MONO # 0.4 10*3/uL (0.1-1.0); MONO % 6.4 % (3.0-9.0); NEUT # 3.8 10*3/uL (2.3-7.9); PLATELET COUNT AUTOMATED 202 10*3/uL (130-400); RED BLOOD COUNT 3.48 10*6/uL (4.10-5.10); RED CELL DISTRI WIDTH 15.7 % (0-14.5); WHITE BLOOD COUNT 5.9 10*3/uL (4.8-10.8)
[2016-06-15 08:56] LABS: ALBUMIN 2.7 gm/dl (3.1-4.5); ALKALINE PHOSPHATASE 164 U/L (45-117); BILIRUBIN, TOTAL 0.3 mg/dl (0.2-1.0); BUN 26 mg/dl (7-24); CARBON DIOXIDE 34 mmol/L (21-32); CHLORIDE 105 mmol/L (98-107); EST GLOM FILT AFRICAN AMERICAN > 60 ml/min; GLUCOSE 106 mg/dL (65-99); POTASSIUM 4.5 mmol/L (3.5-5.1); SGOT/AST 35 IU/L (3-35); SGPT/ALT 35 U/L (12-78); SODIUM 144 mmol/L (136-145)
[2016-06-15 12:00] VITALS: BP 97/51
[2016-06-15 16:00] VITALS: BP 108/60
[2016-06-15 20:00] VITALS: BP 119/62
[2016-06-16] VITALS: BP 123/58
[2016-06-16 04:00] VITALS: BP 144/60
[2016-06-16 08:00] VITALS: BP 118/55
[2016-06-16 12:00] VITALS: BP 106/61
[2016-06-16] MEDS ORDERED: D-1000 185 MG-11 TAB PO (12:59)
== END 2016-06-16 14:07 | disposition short-term general hospital (02) | DRG 4 ==
LOC: ED 14:44 → EDHOLD 19:09 → ICCU 19:09 → 4E 19:39 → ICCU 05-29 21:42
PROVIDERS: Emergency Medicine; Hospitalist; Internal Medicine; Internal Medicine Critical Care Medicine; Student in an Organized Health Care Education/Training Program
PROC: 0BH17EZ Insertion of Endotracheal Airway into Trachea, Via Natural or Artificial Opening (ICD-10-PCS; principal; 2016-05-28)
PROC: 02HV33Z Insertion of Infusion Device into Superior Vena Cava, Percutaneous Approach (ICD-10-PCS; 2016-05-28)
PROC: 5A1955Z Respiratory Ventilation, Greater than 96 Consecutive Hours (ICD-10-PCS; 2016-05-30)
PROC: 5A09457 Assistance with Respiratory Ventilation, 24-96 Consecutive Hours, Continuous Positive Airway Pressure (ICD-10-PCS; 2016-05-31)
PROC: 0B988ZX Drainage of Left Upper Lobe Bronchus, Via Natural or Artificial Opening Endoscopic, Diagnostic (ICD-10-PCS; 2016-06-04)
PROC: 0B968ZX Drainage of Right Lower Lobe Bronchus, Via Natural or Artificial Opening Endoscopic, Diagnostic (ICD-10-PCS; 2016-06-04)
PROC: 0B9F8ZX Drainage of Right Lower Lung Lobe, Via Natural or Artificial Opening Endoscopic, Diagnostic (ICD-10-PCS; 2016-06-04)
PROC: 0B948ZX Drainage of Right Upper Lobe Bronchus, Via Natural or Artificial Opening Endoscopic, Diagnostic (ICD-10-PCS; 2016-06-04)
PROC: 0B958ZX Drainage of Right Middle Lobe Bronchus, Via Natural or Artificial Opening Endoscopic, Diagnostic (ICD-10-PCS; 2016-06-04)
PROC: 0B998ZX Drainage of Lingula Bronchus, Via Natural or Artificial Opening Endoscopic, Diagnostic (ICD-10-PCS; 2016-06-04)
PROC: 0B110F4 Bypass Trachea to Cutaneous with Tracheostomy Device, Open Approach (ICD-10-PCS; 2016-06-04)
DX: J15.6 Pneumonia due to other Gram-negative bacteria (principal); E43 Unspecified severe protein-calorie malnutrition; I50.21 Acute systolic (congestive) heart failure; E87.3 Alkalosis; D61.818 Other pancytopenia; E87.0 Hyperosmolality and hypernatremia; J96.21 Acute and chronic respiratory failure with hypoxia; G71.0 Muscular dystrophy; E83.41 Hypermagnesemia; I95.9 Hypotension, unspecified; J96.22 Acute and chronic respiratory failure with hypercapnia; Z99.11 Dependence on respirator [ventilator] status; G71.11 Myotonic muscular dystrophy; E78.5 Hyperlipidemia, unspecified; E03.9 Hypothyroidism, unspecified; F32.9 Major depressive disorder, single episode, unspecified; E66.01 Morbid (severe) obesity due to excess calories; I25.10 Atherosclerotic heart disease of native coronary artery without angina pectoris; I48.0 Paroxysmal atrial fibrillation; G47.33 Obstructive sleep apnea (adult) (pediatric); E83.39 Other disorders of phosphorus metabolism; E87.5 Hyperkalemia; D64.9 Anemia, unspecified; I44.7 Left bundle-branch block, unspecified; E55.9 Vitamin D deficiency, unspecified; R13.12 Dysphagia, oropharyngeal phase; I25.2 Old myocardial infarction; Z95.810 Presence of automatic (implantable) cardiac defibrillator; Z98.891 History of uterine scar from previous surgery; Z90.49 Acquired absence of other specified parts of digestive tract; Z98.49 Cataract extraction status, unspecified eye; Z80.8 Family history of malignant neoplasm of other organs or systems; Z82.3 Family history of stroke; Z82.49 Family history of ischemic heart disease and other diseases of the circulatory system; Z83.3 Family history of diabetes mellitus; Z88.5 Allergy status to narcotic agent; Z88.8 Allergy status to other drugs, medicaments and biological substances; Z79.82 Long term (current) use of aspirin; Z79.899 Other long term (current) drug therapy; Z91.19 Patient's noncompliance with other medical treatment and regimen; Z68.37 Body mass index [BMI] 37.0-37.9, adult

== ENCOUNTER → 2018-06-21 | Outpatient (CLI) | payer OTHER ==
[~2018-06-21] MED LIST changes: +D-1000 185 MG-11 TAB PO
== END | disposition home or self-care (01) ==
LOC: MAMMO 13:41
DX: Z12.31 Encounter for screening mammogram for malignant neoplasm of breast (principal)

== ENCOUNTER 2019-06-03 21:09 | Emergency (ER) | payer MEDICARE, OTHER ==
[~2019-06-03] VITALS: Ht 157.4 cm; Wt 83.9 kg
[2019-06-03 22:27] LABS: BASO % 0.5 % (0.0-1.0); EOS # 0.1 10*3/uL (0.0-0.4); EOS % 1.6 % (1.0-4.0); HEMATOCRIT 40.3 % (37.0-47.0); HEMOGLOBIN 11.4 g/dl (12.0-16.0); LYMPH # 1.2 10*3/uL (1.3-4.4); LYMPH % 21.1 % (27.0-41.0); MEAN CELL VOLUME 105.2 fl (81.0-99.0); MEAN CORPUSCULAR HGB 29.8 pg (27.0-31.0); MEAN CORPUSCULAR HGB CONC 28.3 g/dl (33.0-37.0); MEAN PLATELET VOLUME 11.2 fl (9.6-12.3); MONO # 0.4 10*3/uL (0.1-1.0); MONO % 8.1 % (3.0-9.0); NEUT # 3.7 10*3/uL (2.3-7.9); NEUT % 68.5 % (47.0-73.0); PLATELET COUNT AUTOMATED 110 10*3/uL (130-400); RED BLOOD COUNT 3.83 10*6/uL (4.10-5.10); WHITE BLOOD COUNT 5.5 10*3/uL (4.8-10.8)
[2019-06-03 22:35] LABS: ACT PARTIAL THROMBO TIME 23.9 SECONDS (20.0-32.1)
[2019-06-03 22:41] LABS: ALBUMIN 2.9 gm/dl (3.1-4.5); ALKALINE PHOSPHATASE 135 U/L (45-117); BUN 21 mg/dl (7-24); CHLORIDE 107 mmol/L (98-107); CREATININE 0.54 mg/dL (0.55-1.02); POTASSIUM 4.6 mmol/L (3.5-5.1); SGOT/AST 16 IU/L (3-35); SGPT/ALT 16 U/L (12-78); SODIUM 146 mmol/L (136-145); TOTAL PROTEIN 6.2 gm/dL (6.4-8.2)
[2019-06-03 22:44] LABS: TROPONIN I 0.075 ng/ml (<0.045)
[2019-06-03 22:48] LABS: THYROID STIM HORMONE (HS) 0.312 uIU/ml (0.358-4.75)
[2019-06-04 00:46] LABS: BILIRUBIN 2+ (NEGATIVE); CLARITY SL CLOUDY (CLEAR); COLOR YELLOW (YELLOW); GLUCOSE NEGATIVE (NEGATIVE); KETONE 1+ (NEGATIVE)
[2019-06-04 00:47] LABS: BLOOD NEGATIVE (NEGATIVE); LEUKO ESTERASE NEGATIVE (NEGATIVE); NITRITE NEGATIVE (NEGATIVE); UROBILINOGEN 0.2 E.U./dl (0.2-1.0)
[2019-06-04 00:54] LABS: BACTERIA 1+; EPITHELIAL CELLS 0-2; MUCOUS TRACE; RBC 0-2 rbc/hpf (0-2)
[2019-06-04 00:56] LABS: URINE AMPHETAMINES < 1000 (1000ng/ml); URINE BARBITURATES < 200 (200ng/ml); URINE BENZODIAZEPINES > 200 (200ng/ml); URINE CANNABINOIDS (THC) < 50 (50ng/ml); URINE COCAINE < 300 (300ng/ml); URINE METHADONE < 300 (300ng/ml); URINE OPIATES < 300 (300ng/ml); URINE PHENCYCLIDINE < 25 (25ng/ml)
== END 2019-06-04 07:20 | disposition federal hospital, planned readmission (88) ==
LOC: ED 21:09
PROVIDERS: Emergency Medicine
DX: R41.82 Altered mental status, unspecified (principal); Z88.5 Allergy status to narcotic agent; Z79.899 Other long term (current) drug therapy; Z79.82 Long term (current) use of aspirin; Z90.49 Acquired absence of other specified parts of digestive tract; Z95.0 Presence of cardiac pacemaker